=== PATIENT | male | born 1935 | race Caucasian/White ===

== ENCOUNTER 2017-04-11 16:25 | Inpatient (IN) | payer MEDICARE ==
[2017-04-11] VITALS (10 sets, daily range): BP systolic 94–128; BP diastolic 57–104; PULSE 50–104; RESP 24–34; O2SAT 68–100
[~2017-04-11] VITALS: Ht 175.3 cm; Wt 95.7 kg
[2017-04-11] MEDS: cefTRIAXone Inj 2,000 MG in Dextrose 5% Minibag Plus 50 ML IV SCH ×2 (08:00→20:00)
[~2017-04-11 16:25] MED LIST: ALBU2.5V4 INHALATION; ASPI-973 PO; ATOR10TA66 PO; CALC600T12 PO; FLUT1DIS5 IH; FURO-128 PO; LISI-571 PO; LORA10CA PO; METO25TA6 PO; MONT10TA20 PO; OMEP20CA11 PO; [UNRECOGNIZED DRUG - CODE] MC
--- NOTE | 2017-04-11 16:43 | ED.REPORT ---
HPI-Dyspnea / Wheezing Date of Service Apr 11, 2017 ED Provider: Nelson Hunt DO Pt is an 81 year old male with a history of COPD, HTN, pacemaker insertion, and CAD who presents to the ED complaining of SOB onset prior to arrival. He c/o associated productive cough with yellow sputum for the past 2 weeks, left neck pain, erythema and swelling on right side of face, and abdominal pain. Per family, the pt was asking to come to the hospital, which is unusual for him. The pt had been complaining about facial pain and erythema for the past week. He has had a facial infection before because he will not take his hearing aides out. HPI was primarily obtained from pt's daughter and [id number]. Nursing Notes Stated Complaint: TROUBLE BREATHING, PAIN IN FACE Chief Complaint: Respiratory Complaints Nursing Notes Reviewed: Yes Allergies: Coded Allergies: morphine (Verified Allergy, Severe, CONFUSED AND DISORIENTED, 07/22/16) Scheduled Aspirin (Aspirin) 81 Mg Tablet 162 MG PO DAILY Atorvastatin Calcium (Atorvastatin Calcium) 10 Mg Tablet 10 MG PO HS Calcium Carbonate (Calcium) 600 Mg Tablet 500 MG PO DAILY Fluticasone/Salmeterol (Advair 500-50 Diskus) 1 Each Disk.w.dev 1 PUFF IH BID Furosemide (Lasix) 40 Mg Tablet 40 MG PO BID Lisinopril (Lisinopril) 5 Mg Tablet 5 MG PO DAILY Loratadine (Claritin) 10 Mg Capsule 10 MG PO DAILY Metoprolol Tartrate (Metoprolol Tartrate) 25 Mg Tablet 25 MG PO BID Montelukast (Singulair) 10 Mg Tablet 10 MG PO HS Omeprazole (Omeprazole) 20 Mg Capsule.dr 20 MG PO BID Scheduled PRN Albuterol Neb Soln (Albuterol Neb Soln) 2.5 Mg/3 Ml Vial.neb 2.5 MG INHALATION Q4H PRN PRN For Wheezing Miscellaneous Medications Guaifenesin (Guaifenesin) 500 Gm Powder 500 GM MC General Time Seen by MD: 16:42 Chief Complaint Shortness of breath Hx Obtained From: Patient, Daughter Arrived By: Walk-in Sudden in Onset?: No Onset Occurred: Onset unknown Symptom Duration: Since onset Severity: Current: No pain currently Severity: Maximum: Moderate Recent Healthcare: No recent doctor visit Similar Sx Previous: No Past Medical History Past Medical History Has historically complained about facial pain and redness for the past week. History of face infection before because he won't take his hearing aides out. Chronic atrial fibrillation. COPD. Pneumonia in the past. History of severe epistaxis secondary to bleeding, with intervention from ENT, and is now off anticoagulation. BPH. Hypertension. GERD. Osteoporosis. 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 Severe ischemic cardiomyopathy, with ejection fraction 20-25%, [place] [employer] Class II heart failure symptoms. Coronary artery disease, nonobstructive. Past Surgical History PAST SURGICAL HISTORY: 1. Status post TURP. 2. Right knee arthroplasty. 3. Bilateral shoulder surgery. 4. Right elbow surgery with artificial joint. 5. Umbilical hernia repair in the past. 6. Single-chamber primary prevention ICD implantation. Smoking History Former Smoker Social History Alcohol Use: Denies alcohol use Drug Use: Denies drug use Other Social History: Good social support Ambulatory Status Independent Review of Systems + redness in face Respiratory: Reports: Prod cough, yellow, Shortness of breath Musculoskeletal: Reports: Neck pain Skin: Reports Swelling Complete sys rev & neg: except as marked. GI: Reports: Abdominal pain Physical Exam Initial Vital Signs Vital Signs (First) Date Time Temp Pulse Resp B/P Pulse Ox O2 Delivery O2 Flow Rate FiO2 04/11/17 16:30 36.7 50 34 128/82 68 Nasal Cannula 2 04/11/17 17:10 24 Initial VS: Reviewed ENT: Mucous membranes moist, Conjunctiva normal, No scleral icterus Abdomen / GI: Soft, Non-tender Skin: Warm, Dry, No cyanosis Neurologic: Alert, Oriented, Nonfocal Psychiatric: Mood/affect normal, Behavior normal General/Constitutional: Awake, Alert, Cooperative Neck: Atraumatic, Full range of motion Respiratory / Chest: Atraumatic, Breath sounds = bilat Course expiratory wheezes throughout. Diminished lung sounds on right lower lobe. Moderate respiratory distress on arrival. CARDIOVASCULAR: Heart is irregularly irregular Lower Extremity / Pelvis / MS: Atraumatic, Full range of motion, Neurologic intact, Vascular intact Trace lower extremity edema Head / Eyes: Atraumatic, Normocephalic Right side of pt's face is erythematous and warm. Upper Extremity / MS: Neurologic intact, Vascular intact Interpretation & Diagnostics Lab Results Interpretation Result Diagram: 04/13/17 0235 04/13/17 0235 Test 04/11/17 00:15 04/11/17 16:44 04/11/17 20:10 Urine Color Dark yellow (YELLOW) Urine Appearance Clear (CLEAR,HAZY) Urine pH 5.5 (5.0-8.0) Urine Specific Cameron 1.020 (1.003-1.035) Urine Protein 30mg/dL (NEG,TRACE) Urine Glucose (UA) Negativemg/dL (NEGATIVE) Urine Ketones Negativemg/dL (NEGATIVE) Urine Occult Blood Trace (NEGATIVE) Urine Nitrite Negative (NEGATIVE) Urine Bilirubin Negative (NEGATIVE) Urine Urobilinogen Normalmg/dL (NORMAL) Urine Leukocyte Esterase Negative (NEGATIVE) Urine RBC 3-10/hpf (0-2) Urine WBC 0-5/hpf (0-5) Urine Epithelial Cells Occasional/hpf (NONE-MOD) Urine Crystals Amorphous urates (NONE Urine Bacteria Few/hpf (NONE-FEW) Urine Hyaline Casts None/lpf (NONE) Urine Granular Casts None seen (NONE SEEN) Urine Waxy Casts None seen (NONE SEEN) Urine Red Blood Cell Casts None seen (NONE SEEN) Urine White Blood Cell Casts None seen (NONE SEEN) Urine Mucus None seen (None Seen) Urine Trichomonas None seen (NONE SEEN) Urine Yeast None (NONE SEEN) Urinalysis Comment None Urine Culture Reflexed Not indicated Urine Legionella pneumophilia Ag Negative (Negative) Prothrombin Time 10.8sec (8.1-12.5) Prothromb Time International Ratio 1.01ratio Hemoglobin A1c 5.6% (4.8-5.6) Magnesium Level 2.1mg/dL (1.6-2.6) Total Bilirubin 0.8mg/dL (0.0-1.2) Aspartate Amino Transf (AST/SGOT) 23U/L (0-50) Alanine Aminotransferase (ALT/SGPT) 12U/L (0-44) Alkaline Phosphatase 88U/L (25-160) Pro-B-Type Natriuretic Peptide 8354pg/mL (0-486) Total Protein 7.7g/dL (6.4-8.4) Albumin 4.2g/dL (3.4-5.0) Lactic Acid Level 1.4mmol/L (0.4-2.0) ECG Interpretation ECG Interpretation: A-fib with a rate of 102. Right axis deviation. Nonspecific T wave abnormalites. When compared with previous, he is more tachycardic. Time: 16:48 Interpreted by: ED physician X-Ray Chest Interpretation Chest Xray Interpretation: IMPRESSION: Changes consistent with pneumonia versus less likely I think atelectasis in this patient with poor depth of inspiration. Dictated by: Elie Leavitt M.D. on 04/11/2017 at 16:59 View: Portable, 1 view Interpretation / Wet Read by: Interpret - Radiologist Re-Eval/Medical Decision Med Decision/Clinical Course 81-year-old male with a history of atrial fibrillation with pacemaker, ischemic cardiomyopathy, heart failure with an ejection fraction of 30-35% on recent EKG performed 07/23/16 also showing severe global hypokinesis of the left ventricle, CKD 3 and COPD presents with increasing shortness of breath, sputum production, and weakness. He has hypoxic/hypercapnic respiratory failure and BiPAP was initiated on arrival. His ABG 7.38/52/180/30 on FiO2 of 100/nonrebreather. His troponin is elevated at 0.52 and is similar to previous hospitalizations. His BNP is elevated at 8000. There are no significant signs of volume overload on his exam or his x-ray. X-ray shows patchy density of the lower lung morgan consistent with a pneumonia. Full set of infectious workup was ordered including blood cultures. He was started on azithromycin and Rocephin for community-acquired pneumonia as he has not recently been in the hospital. It is also noted that he has been complaining of facial pain and redness for the past week or 2 he has a history of facial cellulitis related to him not taking his hearing aids. On exam there is a significant malodor after the hearing aid on the right was removed. There is no fluctuance in the face. His ceftriaxone ordered for pneumonia will cover this. He was hypotensive to the 90s systolic and 1 L fluids was given and his blood pressure improved. He continues to be very sleepy on BiPAP. ABG rechecked Source of Hx: Old records Re-Evaluation/Progress #1: Time of Eval: 17:45 )( Re-Eval Resp / Chest: No respiratory distress Re-Evaluation/Progress Note: Pt rechecked. Informed pt of plan for admission. Pt understands and agrees with plan for admission. All questions addressed. Re-Evaluation/Progress #2: Time of Eval: 19:27 )( Re-Eval Resp / Chest: No respiratory distress Re-Evaluation/Progress Note: Pt rechecked. Family reported history of facial pain and infection due to pt not taking his hearing aides out. Pt's hearing aide was removed and his ears were checked for signs of infection. All questions were answered. 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 Counseled Regarding: Diagnosis, Lab results, Need for admission Discharge & Departure Impression: Primary Impression: Sepsis Sepsis type: sepsis due to unspecified organism Qualified Code: A41.9 - Sepsis, unspecified organism Additional Impressions: Pneumonia Pneumonia type: due to unspecified organism Laterality: unspecified laterality Lung location: unspecified part of lung Qualified Code: J18.9 - Pneumonia, unspecified organism Facial cellulitis Respiratory failure Chronicity: acute on chronic Respiratory failure complication: hypoxia and hypercapnia Qualified Code: J96.21 - Acute and chronic respiratory failure with hypoxia CKD (chronic kidney disease) Chronic kidney disease stage: stage 3 (moderate) Qualified Code: N18.3 - Chronic kidney disease, stage 3 (moderate) Lactic acidosis Disposition: ADMITTED TO HOSPITAL Discharge Condition All VS Reviewed: Yes Condition: Stable Referrals: Lenore Pruitt MD (PCP) Annmarieibazucena Attestation Portions of this note were transcribed by Angelica Bess. I, Dr. Hunt personally performed the history, physical exam and medical decision-making; I reviewed and confirmed the accuracy of the information in the transcribed note. Signed by: Hope Gutiérrez, 04/11/17 and 19:40. copies to: Lenore Pruitt MD, Gary R DO Apr 11, 2017 16:43 Angelica Conteh Apr 11, 2017 18:50
[2017-04-11] MEDS ORDERED: cefTRIAXone Inj 1,000 MG in Dextrose 5% Minibag Plus 50 ML IV ONE (16:55)
[2017-04-11] MEDS ORDERED: Azithromycin Inj 500 MG in Dextrose 5% w/Vial Mate 250 ML IV ONE (16:55)
[2017-04-11] MEDS ORDERED: Albuterol 2.5 mg/3 mL Inhalation Solution NEB ONE (16:55)
[2017-04-11] MEDS ORDERED: Albuterol-Ipratropium 3 mL Inhalation Solution NEB ONE (16:55)
--- NOTE | 2017-04-11 16:57 | ABG ---
DateTimeAnalyzed 16:52:00 -_ pH ____7.379 - 7.350 7.450 pCO2 ___52.1__ -mmHg 35.0 45.0 pO2 180 -mmHg 69.0 116 HCO3- ___30.0__ -mmol/L 22.0 26.0 ABE ____4.1__ -mmol/L -2.0 2.0 tHb ___14.7__ -g/dL O2Hb ___96.8__ -% COHb ____2.0__ -% MetHb ____0.8__ -% sO2 ___99.6__ -% 25.0 FIO2 __100.0__ -% Drawn By jj - Date/Time Notified____ 16:57:00 -_ Oxygen Device 1 NON RE-SHANTELL - Notified By jj - Notified Whom dr andelin - B 761 -mmHg tO2 ___20.3__ -Vol% Russell test _Positive -
--- NOTE | 2017-04-11 17:05 | DRSVH ---
PROCEDURE: X-RAY CHEST ONE VIEW, PORTABLE ([id number]) INDICATIONS: shortness of breath TECHNIQUE: One view of the chest was acquired. COMPARISON: [facility], CR, XR CHEST 2VW, 02/04/2017, 11:30. FINDINGS: Surgical changes and devices: Single lead pacemaker is present in the left chest. parking enforcer marcleino ds and oxygen tubing is seen over the chest. Lungs and pleura: There is a poor depth of inspiration. There are patchy areas of density in the lowe r lung morgan. The appearance would suggest pneumonia rather than failure. Mediastinum: Mediastinal contours appear normal. Heart size is probably mildly enlarged. Bones and chest wall: No suspicious bony lesions. Overlying soft tissues appear unremarkable. IMPRESSION: Changes consistent with pneumonia versus less likely I think atelectasis in this patient with poor depth of inspiration. Dictated by: Elie Leavitt M.D. on 04/11/2017 at 16:59 Approved by: Elie Leavitt M.D. on 04/11/2017 at 17:03
[2017-04-11 17:09] LABS: BASOPHILS % (AUTO) 0.2 % (0-3); EOSINOPHILS % (AUTO) 0.2 % (0-5); MONOCYTES % (AUTO) 7.5 % (4-12); Mean Corpuscular Volume 107.4 fL (81-100); NEUTROPHILS % (AUTO) 87.2 % (40-74); Platelet Count 180 bil/L (150-400)
[2017-04-11 17:30] LABS: INR 1.01 ratio
[2017-04-11 18:03] LABS: TROPONIN T 0.052 ug/L (0.0-0.011)
[2017-04-11 18:15] LABS: Magnesium 2.1 mg/dL (1.6-2.6)
[2017-04-11] MEDS ORDERED: 0.9% Sodium Chloride 1,000 ML IV ONE ×2 (19:12→20:21)
--- NOTE | 2017-04-11 19:53 | ABG ---
DateTimeAnalyzed 19:49:00 -_ pH ____7.404 - 7.350 7.450 pCO2 ___48.0__ -mmHg 35.0 45.0 pO2 ___53.4__ -mmHg 69.0 116 HCO3- ___29.4__ -mmol/L 22.0 26.0 ABE ____4.3__ -mmol/L -2.0 2.0 tHb ___13.5__ -g/dL O2Hb ___86.0__ -% COHb ____2.1__ -% MetHb ____0.8__ -% sO2 ___88.6__ -% 25.0 FIO2 ___28.0__ -% Drawn By AF - Date/Time Notified____ 19:53:00 -_ Oxygen Device 1 ____BIPAP - Notified By AF - Notified Whom ___Dr. Andelin - B 761 -mmHg tO2 ___16.3__ -Vol% Russell test _Positive -
[2017-04-11] MEDS ORDERED: Alum-Mag Hydrox-Simeth 30 mL Suspension PO PRN (20:35)
[2017-04-11] MEDS ORDERED: Polyethylene Glycol (PEG) 17 Gm Powder PO PRN (20:35)
[2017-04-11] MEDS ORDERED: cefTRIAXone Inj 2,000 MG in Dextrose 5% Minibag Plus 50 ML IV SCH (21:50)
[2017-04-11] MEDS: 0.9% Sodium Chloride 1,000 ML IV SCH (22:29)
--- NOTE | 2017-04-11 22:32 | NUR ---
Admit note: Pt arrived to room 2013 at 2120 per cart from ED. Pt was moved onto bed with use of slide board and assist x3. Monitor applied shows A-fib rate 90-110s. RT at bedside places pt on Bipap with setting of 50% Fio2, 12/6, and spo2 is 99%. Pt is very hard of hearing wears bilateral hearing aids. right hearing aid was removed in ED due to red swollen right ear, face and neck. Pt tolerating Bipap well made comfortable in bed. Dr Andres was notified and orders placed for pt. pt has several skin issues. Bilateral arms are dry and flaky with multiple small bruises scattered. Bilateral feet and toes are dry and scaly with callused skin, bilateral legs are dry with flaky skin and multiple small bruises and scabbed areas scattered, right side of face, ear, and neck are red with some swelling.
--- NOTE | 2017-04-11 22:40 | PCM.HPMED ---
Subjective Date of Service Apr 11, 2017 Primary Provider: Admitting Physician: Primary Care Physician: Lenore Pruitt MD Attending Physician: Chief Complaint: Not feeling well, difficulty breathing and pain on right side of face and ear. History of Present Illness: Pt is an 81 year old male with a history of COPD, HTN, pacemaker insertion, and CAD, systolic heart failure with an EF of 30-35% as of 07/23/2016. Who presents to the ED complaining of SOB onset prior to arrival. He c/o associated productive cough with yellow sputum for the past 2 weeks, left neck pain, erythema and swelling on right side of face, and abdominal pain. Per family, the pt was asking to come to the hospital, which is unusual for him. The pt had been complaining about facial pain and erythema for the past week. He has had a facial infection before because he will not take his hearing aides out. He was also seen last year in [facility] for nearly identical presentation aside from facial pain but reports he was cutting his grass on his riding on his lawnmower , and stopped early, came inside and told his family has not been feeling well. He is on 2-3 L O2 at night by nasal cannula. In the past he was prescribed trilogy device which apparently was discontinued 2 months ago for unknown reasons at this point. He was also on a CPAP machine years ago but decided he did when he uses it anymore. Vitals in the emergency department upon admission were as follows; temperature 36.7, pulse 50, respiratory rate 34, blood pressure 128/82, pulse ox 68% on 2 L nasal cannula, when pulse ox was adjusted or changed to his ear he was reported to be 94-100% sats on BiPAP and 24 FiO2. His labs upon admission were white count 11.7, hemoglobin 15.6, platelets 180, neutrophils 87.2, sodium 143, potassium 4.8, chloride 99, carbon dioxide 28, BUNs 37, creatinine 1.76. Glucose 101, lactic acid was initially elevated 2.4, troponins on initial values were 0.052 Blood cultures 2 pending, urinary cultures ordered, strep pneumo antigen, Legionella urine antigen ordered, viral PCR ordered, MRSA nasal ordered, sputum culture ordered. Chest x-ray as reviewed by the radiologist shows changes consistent with pneumonia versus less likely atelectasis. EKG shows an A. fib, minor right axis deviation, no ST elevations or depressions. Rate 102. ABG on arrival with pH 7.37, CO2 52, O2 180 and calculated CO2 30, Repeat ABG with pH 7.4, CO2 48, O2 53, titrated CO2 29 In the emergency department patient received ceftriaxone and azithromycin. Review of Systems: HEENT: redness, erythema and superficial cutaneous crusting in face on the right side and along the right ear. He also reports some episodes of vomiting but is unclear as to when and how many. Respiratory: Reports: Prod cough, yellow, Shortness of breath Musculoskeletal: Reports: Neck pain, and right-sided facial pain Skin: Reports Swelling GI: Reports: Abdominal pain, and decreased urination. Allergies Coded Allergies: morphine (Verified Allergy, Severe, CONFUSED AND DISORIENTED, 07/22/16) Home Medications Aspirin (Aspirin) 81 Mg Tablet 162 MG PO DAILY Atorvastatin Calcium (Atorvastatin Calcium) 10 Mg Tablet 10 MG PO HS Calcium Carbonate (Calcium) 600 Mg Tablet 500 MG PO DAILY Fluticasone/Salmeterol (Advair 500-50 Diskus) 1 Each Disk.w.dev 1 PUFF IH BID Furosemide (Lasix) 40 Mg Tablet 40 MG PO BID Lisinopril (Lisinopril) 5 Mg Tablet 5 MG PO DAILY Loratadine (Claritin) 10 Mg Capsule 10 MG PO DAILY Metoprolol Tartrate (Metoprolol Tartrate) 25 Mg Tablet 25 MG PO BID Montelukast (Singulair) 10 Mg Tablet 10 MG PO HS Omeprazole (Omeprazole) 20 Mg Capsule.dr 20 MG PO BID PMH Has historically complained about facial pain and redness for the past week. History of face infection before because he won't take his hearing aides out. Chronic atrial fibrillation. COPD. Pneumonia in the past. History of severe epistaxis secondary to bleeding, with intervention from ENT, and is now off anticoagulation. BPH. Hypertension. GERD. Osteoporosis. 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 Severe ischemic cardiomyopathy, with ejection fraction 20-25%, [place] [employer] Class II heart failure symptoms. Coronary artery disease, nonobstructive. Surgical History 1. Status post TURP. 2. Right knee arthroplasty. 3. Bilateral shoulder surgery. 4. Right elbow surgery with artificial joint. 5. Umbilical hernia repair in the past. 6. Single-chamber primary prevention ICD implantation. Family History Family cannot recall and patient cannot report family history. Social History Hx Alcohol Use: No Hx Substance Use: No Hx Tobacco Use: Yes (quit in ) Smoking Status: Former Smoker Living Arrangement: with Family Exam Vital Signs Vital Sign - Last Date Time Temp Pulse Resp B/P Pulse Ox O2 Delivery O2 Flow Rate FiO2 04/11/17 20:20 88 26 97/75 98 BiPAP 04/11/17 17:10 24 04/11/17 16:30 36.7 2 Exam General: Elderly patient lying in bed with BiPAP in place. Extremely hard of hearing especially since his right hearing aid has been removed due to cellulitis. Well-developed. Appears to be in no acute distress, HEENT: Normocephalic, atraumatic. External ear on the left without defect on the right erythematous. Pupils equal, round,responsive, not pinpoint or dilated. lower eye lid with erythema and mucopurulent discharge. Oropharynx free of erythema with moist mucosa from what I could see however BiPAP was in place. . Cardiovascular: Irregularly irregular rate and rhythm. No murmurs appreciable, rubs, or gallops appreciated Pulmonary: Bilateral diffuse wheezes and rhonchi present. BiPAP in place. Abdomen: Bowel tones present. Soft, mildly tender to palpation diffusely with no signs of rebound tenderness. nondistended. No hepatosplenomegaly or masses appreciated. Extremities: No clubbing, cyanosis, no lower extremity edema, or lymphadenopathy appreciated. Skin: Normal temperature, turgor, and texture; no rash, ulcers, or subcutaneous nodules appreciated. Neurological: Cranial nerves grossly intact. Normal muscle strength, tone, and bulk. Reflexes, coordination, and sensory function within normal limits. No known gait impairment. Ambulates with a walker when outside the home. Psychiatric: Normal mood and affect. Alert and oriented to person, place, and time, however was very difficult to assess due to patient's inability to hear, or see for that matter. Lab and Diagnostics Result Diagram: 04/11/17164304/11/171643 Assessment & Plan Mr. Markie Pop is an 81-year-old male, with a past medical history of known COPD, CHF, chronic atrial fibrillation with ICD pacer and Defibrillator, hypertension, who presented to the ER complaining of shortness of breath and face pain. 1. Acute Respiratory Failure with Acute exacerbation of chronic obstructive pulmonary disease. Present on admission - Acute exacerbation due to pneumonia. Pulmonary function test from 02/25/17 shows FEV1 43% predicted, GOLD criteria stage 2. Patient is currently requiring BIPAP - Continue oxygen supplementation as needed to keep sats 88-92% - Continue home Singulair 10 mg daily - Continue home Advair (or Symbicort if not available) - Prednisone 40 mg daily x 5 days (according to REDUCE trial), however patient is currently on BIPAP and NPO therefore will give IV solu-medrol at equivalent dosage and switch to PO prednisone when possible. - Consider Pulmonary consult if no improvement 2. Acute sepsis, present on admission. Active. - On admission patient pulse was 92 and respiratory rate 24 placed on a BiPAP however once transferred to the floor patient's pulses at 204, respiratory rate 26, WBC 11.7 with Neuts 87.2 %. - Differential diagnosis includes community-acquired pneumonia, cellulites, urinary tract infection... 3. Community acquired pneumonia. Present on admission, Active. - Unclear if patient aspirated with reports of some vomiting recently. He may be immunocompromised due to his age but does not meet criteria for healthcare associated infection. - Continue Ceftriaxone IV and Azithromycin for empiric antibiotics - Blood cultures, sputum cultures, Legionella/strep pneumo urine antigen, MRSA nasal swab, respiratory viral panel all ordered pending. - Procalcitonin - 0.19, Will repeat in the morning. 4. Acute facial cellulitis, present on admission. Active. - Patient has previous admit for cellulitis of right side of the face and right ear back 02/02/2013. - Is reported the patient does not remove his right sided hearing aid at night and ED reports once removed there was a very foul smell. - Differential diagnosis; erysipelas/cellulitis/otitis externa - Start linezolid which has very good MSSA and MRSA coverage. - ciprofloxacin ear drops. Erythromycin ophthalmic ointment 5. Chronic Heart failure with reduced ejection fraction, present on admission. Active. - Echo as of 07/23/2016 shows EF of 30-35%. - Balance IV fluids 6. Elevated troponin. Present on admission, improving. - Likely due to demand ischemia from pneumonia but patient has risk factors for Acute Coronary syndrome. His chest pain could be angina - Trending troponin, initially elevated at 0.052 with every 4 H with next value 0.044. 7. Hypotension, present on admission. Stable. - We will balance fluid administration in this patient with systolic heart failure and renal injury. - Current IV fluids at 100 per hour, for 1 L will recheck. - Continue Lisinopril 5 mg daily when appropriate. 8. Chronic atrial fibrillation. Currently rate controlled. [id number] score 3 (3.2%/yr stroke risk) but patient had complications of epistasis and anticoagulations was discontinued - Continuing Carvedilol 12.5 mg bid for rate control - Continue home Aspirin 9. Acute on Chronic Kidney disease Stage 3 - Slightly worsening than baseline which could be from pre renal azotemia in the setting of hypovolemia - Avoid nephrotoxic insults. - Patient's creatinine on admission was 1.76 which is right around previous values and seems to run anywhere from 1.26-2.16 on admissions since 2007. - Continue IV fluids however we will balance this with patient systolic heart failure. 10. Coronary artery disease with severe nonischemic cardiomyopathy - Status post implantable cardioverter defibrillator implantation. - Holding diuretics at least tonight to give fluids - Continuing home Simvastatin - Continue 81 Aspirin daily - Acetaminophen as needed for mild pain/fever/headache - Bowel regimen as needed - Antiemetic as needed Patient admitted under inpatient status with expected length of stay > 2 midnights for severity of present symptoms, complexities of treatment plan and risk for adverse event Pain Evaluation: Adequate Pain Control Resuscitation Status: CPR: Attempt Resuscitation LEÓN CONNOR DO Apr 11, 2017 20:43 Sergio Gabriel MD Apr 12, 2017 06:50
[2017-04-11] MEDS ORDERED: MethylprednisoLONE Sodium Succinate 62.5 mg/mL 2 mL Inj IVPUSH ONE (23:25)
[2017-04-12] VITALS (19 sets, daily range): BP systolic 28–114; BP diastolic 59–86; PULSE 75–112; RESP 20–32; O2SAT 92–99
[2017-04-12] MEDS ORDERED: Albuterol 2.5 mg/3 mL Inhalation Solution NEB PRN (00:15)
[2017-04-12] MEDS: Albuterol-Ipratropium 3 mL Inhalation Solution NEB SCH ×7 (00:24→23:32)
[2017-04-12 00:32] LABS: APPEARANCE,URINE CLEAR (CLEAR,HAZY); COLOR,URINE DARK YELLOW (YELLOW); OCCULT BLOOD,URINE TRACE (NEGATIVE); PH,URINE 5.5 (5.0-8.0); UROBILINOGEN,URINE NORMAL (NORMAL)
[2017-04-12] MEDS: Linezolid Inj 600 MG in IV Premix 1 EACH IV SCH ×3 (00:42→21:38)
[2017-04-12] MEDS: cefTRIAXone Inj 2,000 MG in Dextrose 5% Minibag Plus 50 ML IV SCH ×2 (08:00→20:03)
--- NOTE | 2017-04-12 08:02 | DRSVH ---
PROCEDURE: X-RAY CHEST ONE VIEW, PORTABLE ([id number]) INDICATIONS: Pneumonia TECHNIQUE: One view of the chest was acquired. COMPARISON: [facility], CR, XR CHEST 1VW (PORTABLE), 04/11/2017, 16:41. FINDINGS: Surgical changes and devices: Cardiac AICD Lungs and pleura: No pleural effusions or pneumothorax. Retrocardiac patchy consolidation is unchang ed. There is mild right mid and lower lobe opacities which may be mildly improved to stable since ear lier same day. Mediastinum: Mediastinal contours appear normal. Heart size is normal. Bones and chest wall: No suspicious bony lesions. Overlying soft tissues appear unremarkable. IMPRESSION: Bilateral patchy consolidative and groundglass opacities, most pronounced in the retrocardiac region, suggestive of pneumonia (versus aspiration/atelectasis) as above. Please correlate clinically. Dictated by: Malcom Cox M.D. on 04/12/2017 at 7:58 Approved by: Malcom Cox M.D. on 04/12/2017 at 8:00
[2017-04-12] MEDS: Erythromycin 0.5% 3.5 Gm Ophthalmic Ointment BOTH_EYES SCH ×3 (08:30→20:37)
[2017-04-12] MEDS ORDERED: Azithromycin Inj 500 MG in Dextrose 5% w/Vial Mate 250 ML IV SCH (08:30)
[2017-04-12] MEDS: predniSONE 20 mg Tablet PO SCH (10:27)
[2017-04-12] MEDS: Fluticasone-Salmeterol 500-50 Inhaler INHALATION SCH ×2 (10:29→20:37)
[2017-04-12] MEDS: Ciprofloxacin-Dexamethasone 7.5 mL Otic Susp RIGHT_EAR SCH ×2 (10:29→20:38)
[2017-04-12] MEDS: 0.9% Sodium Chloride 1,000 ML IV SCH ×2 (10:30→18:42)
--- NOTE | 2017-04-12 13:50 | PCM.PNMED ---
Subjective Date of Service Apr 12, 2017 Subjective 81-year-old man with COPD on 2 L home O2, ischemic cardiomyopathy LVEF 30-35% presents with 2 weeks of increased productive cough and dyspnea, as well as facial cellulitis. The patient seems to deny symptoms. The knowledge his breathing may be slightly worse than usual. Family describes significant dyspnea and increased phlegm in recent days, as well as worsened redness of the right side of face. They observe some improvement already since admission 24 hours ago. Patient tolerates BiPAP as needed. Exam Vital Signs Vital Sign - Last Date Time Temp Pulse Resp B/P Pulse Ox O2 Delivery O2 Flow Rate FiO2 04/12/17 12:30 84 113/81 95 40 04/12/17 12:28 36.6 20 Room Air 04/11/17 16:30 2 Intake and Output 04/11/17 04/11/17 04/12/17 Cumulative From/Thru 15:00 23:00 07:00 04/11/17 16:30 - 04/12/17 06:45 Intake Total 2000 ml 0 ml 2000 ml Output Total 350 ml 350 ml Balance 2000 ml -350 ml 1650 ml Intake Oral 0 ml 0 ml IV Total 2000 ml 2000 ml Output Urine Total 350 ml 350 ml Exam General: Obese elderly gentleman, hard of hearing, no acute distress HEENT: Right-sided face is reddened and swollen without warmth. Sclerae anicteric, oral mucosa moist; sclera injected bilaterally Neck: No palpable adenopathy on the right, no tender deep structures, no JVD Chest: Moderate diffuse wheezing, rhonchi, no wet rales Cardiac: S1S2, slightly irregular, no murmur Abdomen: BS normal, non-tender Extremities: No pedal edema Neuro: A&O, cranial nerves symmetric decreased , motor strength and coordination generally normal IVs and Medications Medications Reviewed: Medications were reviewed in detail Lab and Diagnostics Troponin T sequence: 0.052, 0.044, 0.053 ProBNP 8354 Procalcitonin 0.19 Result Diagram: 04/11/17 1644 04/11/17 1644 X-Rays, CTs and MRIs PROCEDURE: X-RAY CHEST ONE VIEW, PORTABLE ([id number]) FINDINGS: Lungs and pleura: There is a poor depth of inspiration. There are patchy areas of density in the lower lung morgan. The appearance would suggest pneumonia rather than failure. IMPRESSION: Changes consistent with pneumonia versus less likely I think atelectasis in this patient with poor depth of inspiration. Dictated by: Elie Leavitt M.D. on 04/11/2017 at 16:59 PROCEDURE: X-RAY CHEST ONE VIEW, PORTABLE ([id number]) FINDINGS: Lungs and pleura: No pleural effusions or pneumothorax. Retrocardiac patchy consolidation is unchanged. There is mild right mid and lower lobe opacities which may be mildly improved to stable since earlier same day. Mediastinum: Mediastinal contours appear normal. Heart size is normal. IMPRESSION: Bilateral patchy consolidative and groundglass opacities, most pronounced in the retrocardiac region, suggestive of pneumonia (versus aspiration/atelectasis ) as above. Please correlate clinically. Dictated by: Malcom Cox M.D. on 04/12/2017 at 7:58 . 12-lead ECG 04/11/17 16:48 A. fib, rate 100, normal conduction intervals, no acute ST changes . Assessment & Plan Acute, Active or High-risk Problems: #. SIRS, present on admission. Active. Respiratory rate 24, pulse 92. Afebrile, normotensive with borderline WBC elevation. Not clinically septic. Mild SIRS due to respiratory distress, pneumonia and cellulitis. -Continue to monitor vital signs, blood pressure, urinary output #. Acute Respiratory Failure with Acute exacerbation of chronic obstructive pulmonary disease. Present on admission. Pulmonary function test from 02/25/17 shows FEV1 43% predicted, GOLD criteria stage 2. Acute on chronic COPD exacerbation due to pneumonia. RONALD based on body habitus - Continue BIPAP as needed while resting - Continue oxygen supplementation as needed to keep sats 88-92% - Continue home Singulair 10 mg daily - Continue home Advair (or Symbicort if not available) - Prednisone 40 mg daily x 5 days (according to REDUCE trial) #. Community acquired pneumonia. Present on admission, Active. Does not seem to have significant Pseudomonas or MRSA risk factors. Respiratory viral PCR negative, urinary antigens negative, blood cultures no growth so far. - Continue Ceftriaxone IV and Azithromycin for empiric antibiotics #. 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 Active. Patient has previous admit for cellulitis of right side of the face and right ear 2012. Reportedly related to failure to remove right hearing aid periodically. Differential diagnosis; erysipelas, other cellulitis, otitis externa. Does not seem to be deep soft tissue infection. -Continue linezolid which has very good MSSA and MRSA coverage. - MRSA swab - ciprofloxacin ear drops. #. Hypotension, present on admission. Blood pressure 94/68 shortly after admission. Now 113/80 Stable. Received initial fluid resuscitation. - Discontinue IV fluids. - Resume Lisinopril 5 mg daily when appropriate. #. Acute on Chronic Kidney disease Stage 3. Serum creatinine on admission 1.76. Recent baseline serum creatinine 1.65. - Avoid nephrotoxic insults. Chronic or Stable but Actively Managed Problems: #. Chronic systolic Heart failure, present on admission. Active. No evidence of acute exacerbation at this time. Echo as of 07/23/2016 shows LVEF of 30-35%. - Discontinue IV fluids - The patient is on beta morgan and BUSTER inhibitor; resume these as tolerated #. Chronic atrial fibrillation. [id number] score 3 (3.2%/yr stroke risk) but patient had complications of epistasis and anticoagulations was discontinued - Continuing Carvedilol 12.5 mg bid for rate control - Continue home Aspirin - Telemetry monitoring at present #. Elevated troponin. Present on admission, improving. Temporal pattern does not suggest acute ischemia. A clearly related to CKD. - Monitor cardiac status clinically #. Coronary artery disease. History of implantable cardioverter defibrillator implantation. - Continuing home Simvastatin - Continue 81 Aspirin daily #. Conjunctivitis bilateral. - Erythromycin ophthalmic ointment - Acetaminophen as needed for mild pain/fever/headache - Bowel regimen as needed - Antiemetic as needed Patient admitted under inpatient status with expected length of stay > 2 midnights for severity of present symptoms, complexities of treatment plan and risk for adverse event Resuscitation Status: CPR: Attempt Resuscitation Time spent 35 minutes Hossein Novak MD Apr 12, 2017 13:50
--- NOTE | 2017-04-12 16:01 | NUR ---
Social Work: Screen/Attempted Assessment D: Per EMR review, pt is an 81 year old male admitted for sepsis, Respiratory failure. Pt is [facility] with Medicare. PCP is Lenore Pruitt MD. NOK is Quang Pop, son. Advanced directives not completed per admit RN- [employer] left copy at bedside for pt. Readmit score is low, 2/8. [employer] attempted to meet with patient at bedside to discuss discharge planning. RN and MD team are currently with pt. Pt discussed in am rounds. Pt is not appropriate for discharge at this time and anticipated to require several more days of hospitalization. A: Pt who lives in [place] with his family. P: Evolving; [employer] to follow up with patient to complete assessment and assess for discharge needs. JULISA Motley
[2017-04-12] MEDS: Azithromycin Inj 500 MG in Dextrose 5% w/Vial Mate 250 ML IV SCH (18:42)
--- NOTE | 2017-04-12 19:43 | NUR ---
Resp/CV/Activity/GI Tolerating Bipap 40% I=14/E=8, with resps 20-26. Exertional dyspnea. Pt able to tolerate periods of being off bipap while awake, up in chair or sitting up in bed; Oxymask @ 5L or NC @ 5L keeps sats>92%. Strong persistent cough productive of whitish sputum. Atrial fib 70s when resting; up to 90s with activity. Pt has permanent pacemaker. Diet taken fair Lunch and dinner; pt reports he has poor appetite. Up to BR; stool x1, formed. Spec sent for guiac. Teaching re safety, using call light reviewed with pt; verbalizes understanding. Continue to monitor closely.
--- NOTE | 2017-04-12 23:15 | NUR ---
resp status pt alert and oriented but very sitka, jordan, right ear reddened/swollen/whitish flakes, right side of face reddened, right eyes reddened, denies cp, tele- afib, hr approx 100, denies n/v, abd round /soft, nt, denies pain good uop per f/c, no bm, scd'son, sob with minimal exertion, ls- exp wheezes, hob up, resp rate in 20's, pt on five liters o2 per nc while awake with sats 92-93%, pt on .40 fio2 per bipap while asleep with sats in low 90's, coughing up thin creamy sputum, RT aware pt has orders for acapella and IS, report given to next rn at 2315,
[2017-04-13] VITALS (16 sets, daily range): BP systolic 96–148; BP diastolic 59–87; PULSE 65–117; RESP 16–31; O2SAT 91–98
--- NOTE | 2017-04-13 00:24 | NUR ---
NOC activity 2315: Assumed care of patient. Tolerating bipap, spo2 97%. Denies pain/discomfort. Dai patent, draining clear ny urine to gravity. VSS, TELE: Afib 78. Call light w/in reach. CTM for changes.
[2017-04-13 03:05] LABS: BASOPHILS % (AUTO) 0 % (0-3); EOSINOPHILS % (AUTO) 0 % (0-5); MONOCYTES % (AUTO) 10.1 % (4-12); Mean Corpuscular Volume 106.8 fL (81-100); Platelet Count 154 bil/L (150-400)
[2017-04-13] MEDS: 0.9% Sodium Chloride 1,000 ML IV SCH ×2 (04:04→13:37)
[2017-04-13 04:05] LABS: Phosphorus 3.2 mg/dL (2.5-4.9)
[2017-04-13] MEDS: Albuterol-Ipratropium 3 mL Inhalation Solution NEB SCH ×5 (04:13→20:35)
[2017-04-13] MEDS: Linezolid Inj 600 MG in IV Premix 1 EACH IV SCH ×2 (08:59→22:29)
[2017-04-13] MEDS: predniSONE 20 mg Tablet PO SCH (09:01)
[2017-04-13] MEDS: Erythromycin 0.5% 3.5 Gm Ophthalmic Ointment BOTH_EYES SCH ×3 (09:01→19:57)
[2017-04-13] MEDS: Fluticasone-Salmeterol 500-50 Inhaler INHALATION SCH ×2 (09:01→19:56)
[2017-04-13] MEDS: Ciprofloxacin-Dexamethasone 7.5 mL Otic Susp RIGHT_EAR SCH ×2 (09:02→19:55)
[2017-04-13] MEDS: cefTRIAXone Inj 2,000 MG in Dextrose 5% Minibag Plus 50 ML IV SCH ×2 (10:30→19:49)
--- NOTE | 2017-04-13 14:13 | PCM.PNMED ---
Subjective Date of Service Apr 13, 2017 Subjective 81-year-old man with COPD on 2 L home O2, ischemic cardiomyopathy LVEF 30-35% presents with 2 weeks of increased productive cough and dyspnea, as well as facial cellulitis. The patient seems to deny symptoms, but states he is breathing more comfortably today. His cough is nonproductive. Patient tolerates BiPAP as needed. Pain is localized to right cheek only, no neck pain. Exam Vital Signs Vital Sign - Last Date Time Temp Pulse Resp B/P Pulse Ox O2 Delivery O2 Flow Rate FiO2 04/13/17 12:28 85 20 98 Nasal Cannula 6.00 04/13/17 12:05 36.5 122/59 04/13/17 08:49 40 Intake and Output 04/12/17 04/12/17 04/13/17 Cumulative From/Thru 15:00 23:00 07:00 04/11/17 16:30 - 04/13/17 06:07 Intake Total 3501 ml 1397 ml 6898 ml Output Total 500 ml 1650 ml 2500 ml Balance 3001 ml -253 ml 4398 ml Intake Oral 1180 ml 200 ml 1380 ml IV Total 2321 ml 1197 ml 5518 ml Output Urine Total 500 ml 1650 ml 2500 ml # Voids 9 9 # Bowel Movements 2 2 Exam General: Obese elderly gentleman, hard of hearing, no acute distress HEENT: Right-sided face is reddened and swollen without warmth. Sclerae anicteric, oral mucosa moist; sclera injected bilaterally Neck: No tender deep structures, no JVD Chest: Mild diffuse wheezing and moderate rhonchi Cardiac: S1S2, slightly irregular, no murmur appreciated Abdomen: BS normal, non-tender Extremities: No pedal edema Neuro: A&O, hard of hearing, cranial nerves symmetric, motor strength and coordination generally normal Lab and Diagnostics Result Diagram: 04/13/175 04/13/17 023 X-Rays, CTs and MRIs PROCEDURE: X-RAY CHEST ONE VIEW, PORTABLE ([id number]) FINDINGS: Lungs and pleura: There is a poor depth of inspiration. There are patchy areas of density in the lower lung morgan. The appearance would suggest pneumonia rather than failure. IMPRESSION: Changes consistent with pneumonia versus less likely I think atelectasis in this patient with poor depth of inspiration. Dictated by: Elie Leavitt M.D. on 04/11/2017 at 16:59 PROCEDURE: X-RAY CHEST ONE VIEW, PORTABLE ([id number]) FINDINGS: Lungs and pleura: No pleural effusions or pneumothorax. Retrocardiac patchy consolidation is unchanged. There is mild right mid and lower lobe opacities which may be mildly improved to stable since earlier same day. Mediastinum: Mediastinal contours appear normal. Heart size is normal. IMPRESSION: Bilateral patchy consolidative and groundglass opacities, most pronounced in the retrocardiac region, suggestive of pneumonia (versus aspiration/atelectasis ) as above. Please correlate clinically. Dictated by: Malcom Cox M.D. on 04/12/2017 at 7:58 . 12-lead ECG 04/11/17 16:48 A. fib, rate 100, normal conduction intervals, no acute ST changes . Assessment & Plan Acute, Active or High-risk Problems: #. SIRS, present on admission. Active. Respiratory rate 24, pulse 92. Afebrile, normotensive with borderline WBC elevation. Not clinically septic. Mild SIRS due to respiratory distress, pneumonia and cellulitis. Continues to show tachypnea and tachycardia. -Continue to monitor vital signs, blood pressure, urinary output #. Acute Respiratory Failure with Acute exacerbation of chronic obstructive pulmonary disease. Present on admission. Pulmonary function test from 02/25/17 shows FEV1 43% predicted, GOLD criteria stage 2. Acute on chronic COPD exacerbation due to pneumonia. RONALD with past CPAP use, but not currently compliant. - Continue BIPAP as needed while resting - Continue oxygen supplementation as needed to keep sats 88-92% - Continue home Singulair 10 mg daily - Continue home Advair (or Symbicort if not available) - Prednisone 40 mg daily x 5 days #. Community acquired pneumonia. Present on admission, Active. Does not seem to have significant Pseudomonas or MRSA risk factors. Respiratory viral PCR negative, urinary antigens negative, blood cultures no growth so far. - Continue Ceftriaxone IV and Azithromycin for empiric antibiotics #. 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 Active. Patient has previous admit for cellulitis of right side of the face and right ear 2012. Reportedly related to failure to remove right hearing aid periodically. Differential diagnosis; erysipelas, other cellulitis, otitis externa. Does not seem to be deep soft tissue infection. -Continue linezolid which has very good MSSA and MRSA coverage. - MRSA swab - ciprofloxacin ear drops. - Infectious disease consultation requested #. Hypotension, present on admission. Blood pressure 94/68 shortly after admission. Now 120/70 Stable. Received initial fluid resuscitation. - Discontinue IV fluids. - Resume Lisinopril 5 mg daily when appropriate. #. Acute on Chronic Kidney disease Stage 3. Serum creatinine on admission 1.76. Recent baseline serum creatinine 1.65. - Avoid nephrotoxic insults. Chronic or Stable but Actively Managed Problems: #. Chronic systolic Heart failure, present on admission. Active. No evidence of acute exacerbation at this time. Echo as of 07/23/2016 shows LVEF of 30-35%. - Discontinue IV fluids - The patient is on beta morgan and BUSTER inhibitor; resume these as tolerated #. Chronic atrial fibrillation. [id number] score 3 (3.2%/yr stroke risk) but patient had complications of epistasis and anticoagulations was discontinued - Continuing Carvedilol 12.5 mg bid for rate control - Continue home Aspirin - Telemetry monitoring at present #. Elevated troponin. Present on admission, improving. Temporal pattern does not suggest acute ischemia. A clearly related to CKD. - Monitor cardiac status clinically #. Coronary artery disease. History of implantable cardioverter defibrillator implantation. - Continuing home Simvastatin - Continue 81 Aspirin daily #. Conjunctivitis bilateral. - Erythromycin ophthalmic ointment - Acetaminophen as needed for mild pain/fever/headache - Bowel regimen as needed - Antiemetic as needed Patient admitted under inpatient status with expected length of stay > 2 midnights for severity of present symptoms, complexities of treatment plan and risk for adverse event. Anticipate discharge after his return to his baseline oxygen requirement of approximately 2 L/m. VTE Prophylaxis: Sub-Q Enoxaparin VTE Mechanical Devices: Intermittant Pneumatic CD Resuscitation Status: CPR: Attempt Resuscitation Time spent 35 minutes Hossein Novak MD Apr 13, 2017 14:13
[2017-04-13] MEDS: Azithromycin Inj 500 MG in Dextrose 5% w/Vial Mate 250 ML IV SCH (17:05)
--- NOTE | 2017-04-13 20:54 | CONS ---
[address] [address] CONSULTATION REPORT PATIENT: CONSTANTINE WANG : 1935 MR#: [id number] ADMIT: 04/11/2017 JOB ID: [id number] INFECTIOUS DISEASES CONSULTATION: DATE OF SERVICE: 04/13/2017 REASON FOR CONSULTATION: Possible pulmonary infection. Possible conjunctival infection and possible right facial cellulitis. I thank Dr. Chi Novak for this consult. HISTORY OF PRESENT ILLNESS: The patient is an 81-year-old gentleman known to me from a prior admission last fall. He suffers from underlying COPD as well as coronary disease with cardiomyopathy, hypertension, and some mild renal insufficiency. He has been admitted in the past with COPD exacerbations and cardiac issues. On this occasion, the patient presented to the emergency room on Thursday, April 11, and was admitted because of multiple possible issues including increasing shortness of breath with increasing cough and malaise, as well as some tenderness along the right face as well and some possible facial cellulitis and right-sided conjunctivitis. Note that the patient has had a series of possible episodes of facial cellulitis and ear infections due to his failure to take out his hearing aids or clean them properly. At the time of admission, it was felt the patient likely had pneumonia as well as possible conjunctivitis and/or facial cellulitis and he was started on broad-spectrum antibiotics, which initially included azithromycin and ceftriaxone. He subsequently was failing to improve and there were concerns about his facial cellulitis being MRSA, so linezolid was added to the azithromycin and ceftriaxone. Today, he has been in the hospital a little more than 36 hours and reports he is dramatically better. His right eye is bothering him much less, his right facial warmth and tenderness have almost resolved, and he notes that his cough and breathing issues are approaching baseline. Note that his baseline breathing is not good and he uses oxygen at night, but not in the daytime, and suffers from chronic dyspnea. At this point, the patient tells us though that he is approaching normal and is starting to inquire about possibly going home. Infectious Disease consultation is requested regarding optimal antibiotics and their duration. PAST MEDICAL HISTORY: 1. Organic heart disease. a. Afib. b. Coronary artery disease. c. Defibrillator implant. d. Cardiomyopathy with major reduction in ejection fraction. 2. COPD. 3. Hypertension. 4. Chronic renal insufficiency. 5. 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 SOCIAL HISTORY: The patient quit smoking in the 1970s, does not drink alcohol. 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 FAMILY HISTORY: Negative for second-degree relatives for TB. REVIEW OF SYSTEMS: No significant headache today. He reports that his eyes are basically back to normal and the inflammation in his right eye seems to have resolved. He is having no trouble swallowing. No sore throat. He has some cough, but it is improved over admission when it was quite productive. No significant shortness of breath, but he is still on 4 L, 6 L by nasal prongs, which is way above his baseline nocturnal supplementation. He is not having chest pain, not having nausea, vomiting, or diarrhea. The redness around his right lower face has improved and is no longer bothering him. No diarrhea is noted. He has a Dai catheter which he does not have at home and this should be removed if at all possible. He has minimal edema in his legs.Remainder of the ROS is negative PHYSICAL EXAMINATION: Reveals an afebrile gentleman. Vital signs: Temperature 36.7 degrees. He has been afebrile since admission. Pulse 82, respiratory rate 20, blood pressure 109/87, saturating 94% on 6 L. General: He is in no acute distress, sitting up, reading the paper. His mental status is good. It is difficult to assess, however, because he is so hard of hearing despite having his left hearing aid in place. There is no head trauma. His eyes without conjunctivitis and I do not see any evidence of periorbital infection at this point either. His nose is normal. Oral cavity without thrush or pharyngitis. His neck is somewhat obese and hard to examine, basically nontender. The right facial cellulitis that was seen on admission a twv-pyq-s-half ago was essentially resolved and the right side of his face is no longer warm or tender. His lungs are quite clear and observers who listened just hours ago had noted a great deal of rales and rhonchi, which suggests that this was mechanical rather than infection, at least in part. Cardiac tones are deceiving and sound rather regular, but in looking at the monitor, remains in AFib just with a relatively steady rate. No significant murmurs are appreciated. The abdomen is obese, soft, nontender without masses. He has a Dai catheter in place. No suprapubic fullness. His extremities are with minimal peripheral edema. His upper extremity pulses are normal. Joints are without evidence of synovitis. There is no notable skin rash. Mental status seems clear, though it is difficult to establish with his hearing problems. LABORATORIES: Include a white count of 11.7 when he arrived in the ER, 87% segs. His creatinine is 1.64. Pro calcitonin 0.18. Urinalysis without white cells. Serology includes negative urine Legionella and pneumococcal antigens. The initial sputum sample was largely just squamous cells and was rejected by the laboratory. Respiratory virus, PCR negative. Blood cultures negative so far. IMAGING: Reviewed on the view screen. His chest x-rays show bilateral patchy infiltrates, perhaps more on the left with retrocardiac infiltrate which could be compatible with pneumonia or atelectasis. IMPRESSION: This is an 81-year-old gentleman, well known to this facility, with severe chronic obstructive pulmonary disease as well as underlying cardiac disease. The patient developed what sounds like primarily respiratory tract infection with associated conjunctivitis and right facial cellulitis. After only 36 hours or so in the hospital, he is quite a bit better though we remains dependent on relatively high flow nasal oxygen at 6 L. The fact his lungs are now so clear posteriorly makes me wonder whether a lot of what we saw on the chest x-ray was atelectasis, but it is nonetheless reasonable to proceed with at least a short course of fairly aggressive antibiotics. Note that his procalcitonin was never greater than 0.2 though, which would be underwhelming in terms of a serious bacterial pneumonia. His facial cellulitis and eye issues also seem to be resolving quickly. RECOMMENDATIONS: 1. MRSA screen has been ordered. If the MRSA screen is negative, then linezolid can be dropped. 2. He has had two days of azithromycin. Will get a third dose this evening. After this evening's dose, I would discontinue the azithromycin as he received a 1.5 g dose which should be adequate. 3. Will continue with ceftriaxone for now. 4. Will continue to closely watch this interesting patient with you. Thank you very much for this consult. [facility]
[2017-04-14] VITALS (13 sets, daily range): BP systolic 102–135; BP diastolic 72–84; PULSE 68–118; RESP 14–24; O2SAT 93–98
[2017-04-14] MEDS: Albuterol-Ipratropium 3 mL Inhalation Solution NEB SCH ×6 (00:29→19:56)
--- NOTE | 2017-04-14 06:30 | NUR ---
Tele/O2 Pt tele at start of shift was in Afib w/ a rate of 90s-120s, pt denied symptoms, given HS metoprolol dose and rate has been 70s-80s for most of the shift since. Pt O2 sats continually dropped to low to mid 80s at shift change, pt changed to oxymask and soon after RT applied BiPAP. With lower FiO2 pt would desat to low to mid 80s frequently. Ultimately RT kept BiPAP w/ FiO2 of 40% and sats maintained. Monitored on [employer]. Pt denied SOB throughout night, encouraged to cough and deep breathe as he sounds somewhat course but cannot cough up much. Pt denied pain throughout shift.
[2017-04-14] MEDS: predniSONE 20 mg Tablet PO SCH (09:11)
[2017-04-14] MEDS: Ciprofloxacin-Dexamethasone 7.5 mL Otic Susp RIGHT_EAR SCH ×2 (09:11→21:26)
[2017-04-14] MEDS: Fluticasone-Salmeterol 500-50 Inhaler INHALATION SCH ×2 (09:12→21:26)
[2017-04-14] MEDS: Linezolid Inj 600 MG in IV Premix 1 EACH IV SCH (09:26)
--- NOTE | 2017-04-14 09:32 | PROG NOTE ---
[address] [address] PROGRESS NOTE PATIENT: CONSTANTINE WANG : 1935 MR#: [id number] ADMIT: 04/11/2017 JOB ID: [id number] DATE: 04/14/2017 REASON FOR FOLLOWUP: Right facial cellulitis and COPD exacerbation. INTERVAL HISTORY: Overnight, the patient reports his right facial cellulitis is much better, though he still has some puffiness under his right eye as well as some increased tearing from that right eye. He is having no fevers, chills, or sweats. He denies significant shortness of breath, though he remains on nasal oxygen which he continues to require, which he does not apparently use consistently at home. No other new complaints. This case discussed in detail at the bedside which Chi Novak and the hospitalist team. PHYSICAL EXAMINATION: Reveals an elderly gentleman in no acute distress. Temp 36.6, pulse 80, respiratory rate 20, blood pressure 114/75. He is saturating well but still requiring 4 L. Examination of the right mandibular area reveals that the tenderness and erythema there is completely resolved. There is no tenderness or erythema either around the right ear, but there is some diffuse swelling which is relatively nontender, but erythematous underneath the right eye with some minimal tearing from the right eye. Oral cavity negative. Lungs with a few scattered crackles at the bases. No skin rash. No abdominal findings. LABORATORY DATA: The patient's white count is 7900, platelets 154. Creatinine 1.64. Procalcitonin 0.18. Urine Legionella and pneumococcus negative. Nasal smear positive for MRSA. No chest x-ray now for two days. IMPRESSION: This is an 81-year-old gentleman with longstanding chronic obstructive pulmonary disease as well as organic heart disease. He was admitted with some respiratory tract decompensation as well as apparent conjunctivitis and right facial cellulitis. He is improving after about two and half days in the hospital but still requiring considerable nasal oxygen which he does not use consistently at home, though he does have some oxygen use at night. His right facial cellulitis seems better, but there is still some puffiness under the right eye and he continues to be treated for conjunctivitis. RECOMMENDATIONS: 1. We can discontinue ceftriaxone at this point, and just treat exclusively with linezolid, with a plan to extend linezolid for about a 10 day course which would take us through about April 22. 2. Will get a two-view chest x-ray downstairs to clarify what is going on in his lungs. 3. Linezolid can be switched to p.o., and I will mention this to the ICU pharmacist. 4. Will continue to follow up with you tomorrow, but hopefully, if his chest x-ray looks good and his oxygen requirements continue to drop, he can be discharged soon on oral linezolid.
--- NOTE | 2017-04-14 15:23 | PCM.PNMED ---
Subjective Date of Service Apr 14, 2017 Subjective 81-year-old man with COPD on 2 L home O2, ischemic cardiomyopathy LVEF 30-35% presents with 2 weeks of increased productive cough and dyspnea, as well as facial cellulitis. The patient seems to deny symptoms, but states he is breathing more comfortably today. His cough is nonproductive. Patient tolerates BiPAP. Reduced right cheek pain, no neck pain. Exam Vital Signs Vital Sign - Last Date Time Temp Pulse Resp B/P Pulse Ox O2 Delivery O2 Flow Rate FiO2 04/14/17 13:09 97 14 95 Nasal Cannula 4.00 04/14/17 12:29 36.5 132/81 04/14/17 04:00 40 Intake and Output 04/13/17 04/13/17 04/14/17 Cumulative From/Thru 15:00 23:00 07:00 04/11/17 16:30 - 04/14/17 06:30 Intake Total 2247 ml 741 ml 9886 ml Output Total 550 ml 500 ml 3550 ml Balance 1697 ml 241 ml 6336 ml Intake Oral 736 ml 300 ml 2416 ml IV Total 1511 ml 441 ml 7470 ml Output Urine Total 550 ml 500 ml 3550 ml # Voids 9 # Bowel Movements 2 Exam General: Obese elderly gentleman, hard of hearing, no acute distress HEENT: Right-sided face is reddened and swollen without warmth. Sclerae anicteric, oral mucosa moist; sclera injected bilaterally Neck: No tender deep structures, no JVD Chest: No wheezing; coarse breath sounds with bibasilar crackles Cardiac: S1S2, no murmur appreciated Abdomen: BS normal, non-tender Extremities: No pedal edema Neuro: A&O, hard of hearing, cranial nerves symmetric, motor strength and coordination generally normal IVs and Medications Medications Reviewed: Medications were reviewed in detail Lab and Diagnostics Result Diagram: 04/13/1723404/13/17234 X-Rays, CTs and MRIs PROCEDURE: X-RAY CHEST ONE VIEW, PORTABLE ([id number]) FINDINGS: Lungs and pleura: There is a poor depth of inspiration. There are patchy areas of density in the lower lung morgan. The appearance would suggest pneumonia rather than failure. IMPRESSION: Changes consistent with pneumonia versus less likely I think atelectasis in this patient with poor depth of inspiration. Dictated by: Elie Leavitt M.D. on 04/11/2017 at 16:59 PROCEDURE: X-RAY CHEST ONE VIEW, PORTABLE ([id number]) FINDINGS: Lungs and pleura: No pleural effusions or pneumothorax. Retrocardiac patchy consolidation is unchanged. There is mild right mid and lower lobe opacities which may be mildly improved to stable since earlier same day. Mediastinum: Mediastinal contours appear normal. Heart size is normal. IMPRESSION: Bilateral patchy consolidative and groundglass opacities, most pronounced in the retrocardiac region, suggestive of pneumonia (versus aspiration/atelectasis ) as above. Please correlate clinically. Dictated by: Malcom Cox M.D. on 04/12/2017 at 7:58 . 12-lead ECG 04/11/17 16:48 A. fib, rate 100, normal conduction intervals, no acute ST changes . Assessment & Plan Acute, Active or High-risk Problems: #. Acute Respiratory Failure with Acute exacerbation of chronic obstructive pulmonary disease. Present on admission. Pulmonary function test from 02/25/17 shows FEV1 43% predicted, GOLD criteria stage 2. Acute on chronic COPD exacerbation due to pneumonia. RONALD with past CPAP use, but not currently compliant. He received prescription for Trilogy in the past but was unable to afford this. He only uses oxygen at night because he prefers to remain busy during the day. Currently his wheezing is resolved but he continues to require more than his usual 2 L oxygen. His possible that we are see history of baseline and that his prior prescription for 2 L has been inadequate. - Encourage nocturnal CPAP use - Continue to titrate and wean oxygen supplementation as needed to keep sats 88- 92% - Prednisone 40 mg daily x 5 days; day 1 was 04/12 - Respiratory therapy assessment for home oxygen needs #. Community acquired pneumonia. Present on admission, Active. Does not seem to have significant Pseudomonas or MRSA risk factors. Respiratory viral PCR negative, urinary antigens negative, blood cultures no growth so far. - Continue Ceftriaxone IV and Azithromycin for empiric antibiotics #. 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 Active. Patient has previous admit for cellulitis of right side of the face and right ear 2012. Reportedly related to failure to remove right hearing aid periodically. Differential diagnosis; erysipelas, other cellulitis, otitis externa. Does not seem to be deep soft tissue infection. - Continue linezolid for facial cellulitis with positive MRSA swab - ciprofloxacin ear drops. - Infectious disease consult following #. Acute on Chronic Kidney disease Stage 3. Serum creatinine on admission 1.76. Recent baseline serum creatinine 1.65. - Avoid nephrotoxic insults. Chronic or Stable but Actively Managed Problems: #. SIRS, present on admission. Active. Respiratory rate 24, pulse 92. Blood pressure 94/68 shortly after admission. Now 120/70, Afebrile, normotensive with borderline WBC elevation. Not clinically septic. Mild SIRS due to respiratory distress, COPD and cellulitis. Continues to show tachypnea and tachycardia. - Resolved - Continue to monitor vital signs, blood pressure, urinary output #. Chronic systolic Heart failure, present on admission. Active. No evidence of acute exacerbation at this time. Echo as of 07/23/2016 shows LVEF of 30-35%. - Discontinue IV fluids - The patient is on beta morgan and BUSTER inhibitor; resume these as tolerated #. Chronic atrial fibrillation. [id number] score 3 (3.2%/yr stroke risk) but patient had complications of epistasis and anticoagulations was discontinued - Continuing Carvedilol 12.5 mg bid for rate control - Continue home Aspirin - Telemetry monitoring at present #. Elevated troponin. Present on admission, improving. Temporal pattern does not suggest acute ischemia. A clearly related to CKD. - Monitor cardiac status clinically #. Coronary artery disease. History of implantable cardioverter defibrillator implantation. - Continuing home Simvastatin - Continue 81 Aspirin daily #. Conjunctivitis bilateral. - Erythromycin ophthalmic ointment - Acetaminophen as needed for mild pain/fever/headache - Bowel regimen as needed - Antiemetic as needed Disposition: He is substantially recovered from acute COPD flare. Checks x-ray shows persistent bibasilar infiltrates, atelectasis or heart failure. He continues to have greater than usual oxygen needs. Anticipate discharge after his return to baseline oxygen requirement of approximately ~2-4 L/m, likely on , possibly increase with his home oxygen prescription. VTE Prophylaxis: Sub-Q Enoxaparin VTE Mechanical Devices: Intermittant Pneumatic CD Resuscitation Status: CPR: Attempt Resuscitation Time spent 35 minutes Hossein Novak MD Apr 14, 2017 15:23
--- NOTE | 2017-04-14 15:26 | NUR ---
Social Work: Attempted Assessment/Continued Discharge Planning D: EMR reviewed. Pt is on day 3 of hospitalization. SW attempted to meet with pt but pt was being seen by medical staff. RT notified SW that pt's insurance has authorized BiPAP machine and pt's copay will be $80. RT requested SW contact pt's NOK to determine if pt or family can pay copay for BiPAP. SW attempted to call NOK Quang Pop [phone] but voicemail is not set up. SW will continue to call son. SW updated RN on pt's discharge plan and pending contact with NOK. RN stated that pt is very hard of hearing but is decisional. SW will continue to try and contact NOK and update note. A: Pt for whom a BiPAP machine has been deemed medically necessary. P: SW to follow-up with pt and NOK regarding BiPAP co-pay and update MD. Pt likely to discharge once BiPAP copay costs can be covered. JULISA Rojas
--- NOTE | 2017-04-14 18:17 | NUR ---
Activity/Respiratory A/Ox3, up to chair for extended period this AM, and meals. Dai d/c, urinal at BS, 1P assist to BR. Spo2 in 80's - 90's on 6L, requires Bipap when sleeping. Spo2 fluctuated more this afternoon, noted to have poor perfusion to fingers and weak pleth. Warm blanket applied to hand. Encouraged more PO to increase UOP, activity to strengthen for discharge - home Bipap planned and coordinating in place.
[2017-04-15 01:01] VITALS: BP 130/82; RESP 22; O2SAT 93
[2017-04-15] MEDS: Albuterol-Ipratropium 3 mL Inhalation Solution NEB SCH ×3 (01:01→09:19)
[2017-04-15 03:14] VITALS: BP 126/81; PULSE 92; RESP 24; O2SAT 95
[2017-04-15 05:23] VITALS: BP 127/84; RESP 28; O2SAT 95
--- NOTE | 2017-04-15 07:12 | NUR ---
O2/Restful Night Pt on BiPAP throughout night, FiO2 at 40%, monitored on TREAD BUILDER, pt denied pain or SOB. Q4 nebs done. Tele Afib 80s-90s after HS metoprolol. Pt appeared to sleep comfortably between care interventions overnight.
[2017-04-15 07:37] VITALS: BP 125/79; PULSE 84; PULSE 96; RESP 27; O2SAT 96
[2017-04-15 09:20] VITALS: PULSE 93; RESP 22; O2SAT 97
[2017-04-15] MEDS: Fluticasone-Salmeterol 500-50 Inhaler INHALATION SCH (09:34)
[2017-04-15] MEDS: predniSONE 20 mg Tablet PO SCH (09:35)
[2017-04-15] MEDS: Ciprofloxacin-Dexamethasone 7.5 mL Otic Susp RIGHT_EAR SCH (09:36)
--- NOTE | 2017-04-15 09:36 | DRSVH ---
PROCEDURE: X-RAY CHEST, TWO VIEWS ([id number]) INDICATIONS: shortness of breath, O2 dependent TECHNIQUE: 2 views of the chest were acquired. COMPARISON: [facility], CR, XR CHEST 1VW (PORTABLE), 04/12/2017, 4:42. formerly [facility], CR, XR CHEST 2VW, 02/04/2017, 11:30. FINDINGS: Surgical changes and devices: Stable position of left chest AICD. Lungs and pleura: Persistent air space opacity of the left lung base and there has been interval incr ease in airspace opacity involving the right lung base. No pneumothorax. Mediastinum: Mediastinal contours are normal. Heart size is normal. Bones and chest wall: No suspicious bony abnormalities. Soft tissues appear unremarkable. Healed r ight sixth posterior lateral rib fracture redemonstrated. IMPRESSION: Persistent left and increased right basilar patchy airspace opacity suggesting worsening aspiration or pneumonia. Dictated by: Chi Vigil A Interpreted: Sophie Lang MD on 04/14/2017 at 10:42 Approved by: Sophie Lang M.D. on 04/15/2017 at 9:34
[2017-04-15 10:18] VITALS: PULSE 92
--- NOTE | 2017-04-15 10:50 | PROG NOTE ---
[address] [address] PROGRESS NOTE PATIENT: CONSTANTINE WANG : 1935 MR#: [id number] ADMIT: 04/11/2017 JOB ID: [id number] DATE: 04/15/2017 REASON FOR FOLLOWUP: Right facial cellulitis combined with possible pneumonia superimposed on substrate of COPD. INTERVAL HISTORY: Today, the patient feels ready to go home. He denies any fevers, chills, or sweats. He notes his right facial cellulitis essentially resolved. He is not especially short of breath as compared to his baseline. No new cough. No pleuritic chest pain, nausea, or vomiting. PHYSICAL EXAMINATION: Reveals an afebrile gentleman, temperature 36.5, pulse 93 respiratory 22, blood pressure 125/79, saturating well on 5 L no acute distress. His right facial cellulitis essentially resolved. I saw some increased conjunctival hyperemia on the right, but there is no tenderness below the right eye nor is there any tenderness around the right mandible and the right ear. His lung exam is notable for coarse rales and rhonchi of the left lower lobe. The abdomen is benign. No new other findings. No CBC was done today. Our last white count two days ago was normal at 7900. Our last creatinine two days ago 1.64. Procalcitonin last done on the was stable at 0.18 as compared to prior values. The nasal MRSA screen is positive and confirmed positive by culture. Sputum culture with some minimal mixed daquan and unimpressive Gram stain. No polys were even seen. No positive blood cultures. Imaging done yesterday includes a chest radiograph that shows left basilar airspace opacity. IMPRESSION: This patient has improved considerably with respect to his right facial cellulitis and possible pulmonary infection at least by clinical criteria. At this point, the patient feels ready for discharge later today. In reviewing the radiograph from yesterday, to me this has the feel of atelectasis. There is some platelike consolidations in the bases. Whether or not this represents atelectasis, scarring, or new infiltrate is unclear, but the patient certainly is not behaving as if he has a significant new pulmonary process. RECOMMENDATIONS: 1. The patient is ready for discharge from an Infectious Disease point of view and should stay on linezolid through April 22 which would be about one more week from today. 2. The linezolid obviously can be given by the oral route. Given his normal platelet count today, I do not think we will need to repeat any labs until we finished the linezolid. Given his normal platelet count of 2 days ago I do not think we need to repeat one as short course of linezolid tend to be well tolerated in terms of thrombocytopenia. 3. The patient will be using his Trilogy and/or CPAP more at home as he has not always been completely compliant with this. In addition he may need nasal oxygen during the day as well as supplemental oxygen at night given his rather severe and chronic underlying lung disease. 4. ID will go ahead and sign off at this time.
--- NOTE | 2017-04-15 11:02 | PCM.DIMED ---
Discharge Instructions Date of Service Apr 15, 2017 Dates of Hospitalization Apr 11, 2017 at 20:40 Discharge Diagnosis Discharge Diagnosis #. Acute Respiratory Failure with Acute exacerbation of chronic obstructive pulmonary disease. Proved #. Community acquired pneumonia. Improved #. Acute on chronic facial cellulitis, resolved #. Acute on Chronic Kidney disease Stage 3. Improved #. SIRS, present on admission. Resolved #. Chronic systolic Heart failure, present on admission. Stable #. Chronic atrial fibrillation. [id number] score 3 (3.2%/yr stroke risk) but patient had complications of epistasis and anticoagulations was discontinued #. Elevated troponin. Improved #. Coronary artery disease. Stable #. Conjunctivitis bilateral. Resolved. Diet Discharge Diet: No restrictions Activity Discharge Activity: No restrictions Call your provider Call your provider for: Fever or Chills, Shortness of breath Patient Instructions Follow-up Provider: Lenore Pruitt MD Follow-up with PCP in: 1 week Russell Myles MD Apr 15, 2017 11:02
[2017-04-15] MEDS ORDERED: LINE600T2 PO (11:08)
--- NOTE | 2017-04-15 12:59 | NUR ---
Social work note - Assessment and discharge Markie Pop is a 81 yr old who was admitted for sepsis, resp distress. EMR reviewed: Pt has [employer] plan. His PCP is Dr Pruitt. No LTC insurance, no VA benefits. Readmit score is 2 - moderate. Pt has no DPOA - Pt refused paperwork, stating that his kids will be his decision maker. See attached CM initial assessment. [employer] met with pt - introduced D/C planning and explained SW role. Pt lives at home in [place] with his family. He uses a cane, walker and wheelchair when needed. Has Life line. He has O2 through [employer] - MD is ordering Bipap for home. [employer] discussed With RT Rajeev Damon who will make sure arrangements are made for [employer]. Pt states he is able to pay the $80 copay. His son is able to take him home. He lives with his daughter who provides support. Plan: Home with family in [facility] with Bipap ordered through [employer]. LUCIANA Beebe Addendum: 04/15/17 at 1304 by ADARSH HERNANDEZ SS Amended: Links added.
--- NOTE | 2017-04-15 14:02 | NUR ---
D/C note.. Pt has been up amb in room on nasal cannula and is ward activity well denying any SOB. Seen by MD and d/c order written. When reviewing pt's d/c meds with him, he states he only takes Lasix daily, not BID as ordered. Dr Myles updated and ok given for pt to take dose daily. CHF teaching reviewed and pt states he is monitoring his weight at home. D/C'd home with belongings with his son who brought in pt's own home O2 tank for the drive home.
--- NOTE | 2017-04-15 16:24 | PCM.DC.MED ---
Discharge Summary Date of Service Apr 15, 2017 Dates of Hospitalization Date of Hospital Admission Apr 11, 2017 at 20:40 Date of Discharge: Apr 15, 2017 Providers: Admitting Physician: Sergio Gabriel MD Primary Care Physician: Lenore Pruitt MD Attending Physician: Sergio Gabriel MD Diagnosis at Time of Discharge Diagnosis at Time of Discharge #. Sepsis, resolved. Source was pneumonia and cellulitis. #. Acute Respiratory Failure with Acute exacerbation of chronic obstructive pulmonary disease. Proved #. Community acquired pneumonia. Improved #. Acute on chronic facial cellulitis, resolved #. Acute on Chronic Kidney disease Stage 3. Improved #. SIRS, present on admission. Resolved #. Chronic systolic Heart failure, present on admission. Stable #. Chronic atrial fibrillation. [id number] score 3 (3.2%/yr stroke risk) but patient had complications of epistasis and anticoagulations was discontinued #. Elevated troponin. Improved #. Coronary artery disease. Stable #. Conjunctivitis bilateral. Resolved. Consultations Infectious disease, Dr. Wall Procedures XRay, CTs & MRIs PROCEDURE: X-RAY CHEST ONE VIEW, PORTABLE ([id number]) FINDINGS: Lungs and pleura: There is a poor depth of inspiration. There are patchy areas of density in the lower lung morgan. The appearance would suggest pneumonia rather than failure. IMPRESSION: Changes consistent with pneumonia versus less likely I think atelectasis in this patient with poor depth of inspiration. Dictated by: Elie Leavitt M.D. on 04/11/2017 at 16:59 PROCEDURE: X-RAY CHEST ONE VIEW, PORTABLE ([id number]) FINDINGS: Lungs and pleura: No pleural effusions or pneumothorax. Retrocardiac patchy consolidation is unchanged. There is mild right mid and lower lobe opacities which may be mildly improved to stable since earlier same day. Mediastinum: Mediastinal contours appear normal. Heart size is normal. IMPRESSION: Bilateral patchy consolidative and groundglass opacities, most pronounced in the retrocardiac region, suggestive of pneumonia (versus aspiration/atelectasis ) as above. Please correlate clinically. Dictated by: Malcom Cox M.D. on 04/12/2017 at 7:58 . ECG 12 Lead 04/11/17 16:48 A. fib, rate 100, normal conduction intervals, no acute ST changes . Brief History Pt is an 81 year old male with a history of COPD, HTN, pacemaker insertion, and CAD, systolic heart failure with an EF of 30-35% as of 07/23/2016. Who presents to the ED complaining of SOB onset prior to arrival. He c/o associated productive cough with yellow sputum for the past 2 weeks, left neck pain, erythema and swelling on right side of face, and abdominal pain. Per family, the pt was asking to come to the hospital, which is unusual for him. The pt had been complaining about facial pain and erythema for the past week. He has had a facial infection before because he will not take his hearing aides out. He was also seen last year in [facility] for nearly identical presentation aside from facial pain but reports he was cutting his grass on his riding on his lawnmower , and stopped early, came inside and told his family has not been feeling well. He is on 2-3 L O2 at night by nasal cannula. In the past he was prescribed trilogy device which apparently was discontinued 2 months ago for unknown reasons at this point. He was also on a CPAP machine years ago but decided he did when he uses it anymore. Vitals in the emergency department upon admission were as follows; temperature 36.7, pulse 50, respiratory rate 34, blood pressure 128/82, pulse ox 68% on 2 L nasal cannula, when pulse ox was adjusted or changed to his ear he was reported to be 94-100% sats on BiPAP and 24 FiO2. His labs upon admission were white count 11.7, hemoglobin 15.6, platelets 180, neutrophils 87.2, sodium 143, potassium 4.8, chloride 99, carbon dioxide 28, BUNs 37, creatinine 1.76. Glucose 101, lactic acid was initially elevated 2.4, troponins on initial values were 0.052 Blood cultures 2 pending, urinary cultures ordered, strep pneumo antigen, Legionella urine antigen ordered, viral PCR ordered, MRSA nasal ordered, sputum culture ordered. Chest x-ray as reviewed by the radiologist shows changes consistent with pneumonia versus less likely atelectasis. EKG shows an A. fib, minor right axis deviation, no ST elevations or depressions. Rate 102. ABG on arrival with pH 7.37, CO2 52, O2 180 and calculated CO2 30, Repeat ABG with pH 7.4, CO2 48, O2 53, titrated CO2 29 In the emergency department patient received ceftriaxone and azithromycin. Hospital Course Acute, Active or High-risk Problems: #. Acute Respiratory Failure with Acute exacerbation of chronic obstructive pulmonary disease. Present on admission. Pulmonary function test from 02/25/17 shows FEV1 43% predicted, GOLD criteria stage 2. Acute on chronic COPD exacerbation due to pneumonia. RONALD with past CPAP use, but not currently compliant. He received prescription for Trilogy in the past but was unable to afford this. He only uses oxygen at night because he prefers to remain busy during the day. Currently his wheezing is resolved but he continues to require more than his usual 2 L oxygen. His possible that we are see history of baseline and that his prior prescription for 2 L has been inadequate. - Encourage nocturnal CPAP use - Continue to titrate and wean oxygen supplementation as needed to keep sats 88- 92% - Prednisone 40 mg daily x 5 days; day 1 was 04/12 - Respiratory therapy assessment for home oxygen needs The patient improved on standard treatment for acute COPD exacerbation. Was able to wean off from his noninvasive positive pressure ventilation to oxygen about 2 L. #. Community acquired pneumonia. Present on admission, Active. Does not seem to have significant Pseudomonas or MRSA risk factors. Respiratory viral PCR negative, urinary antigens negative, blood cultures no growth so far. - Continue Ceftriaxone IV and Azithromycin for empiric antibiotics He was treated for pneumonia with ceftriaxone and azithromycin again had standard improvement. #. 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 Active. Patient has previous admit for cellulitis of right side of the face and right ear 2012. Reportedly related to failure to remove right hearing aid periodically. Differential diagnosis; erysipelas, other cellulitis, otitis externa. Does not seem to be deep soft tissue infection. - Continue linezolid for facial cellulitis with positive MRSA swab - ciprofloxacin ear drops. - Infectious disease consult following He initially had evidence of any facial cellulitis which again did improve with IV antibiotics. #. Acute kidney injury on Chronic Kidney disease Stage 3. Serum creatinine on admission 1.76. Recent baseline serum creatinine 1.65. - Avoid nephrotoxic insults. This improved with fluid resuscitation as well. #. SIRS, present on admission. Active. Respiratory rate 24, pulse 92. Blood pressure 94/68 shortly after admission. Now 120/70, Afebrile, normotensive with borderline WBC elevation. Not clinically septic. Mild SIRS due to respiratory distress, COPD and cellulitis. Continues to show tachypnea and tachycardia. - Resolved - Continue to monitor vital signs, blood pressure, urinary output SIRS resolved with treatment of his primary infection. #. Chronic systolic Heart failure, present on admission. Stable. No evidence of acute exacerbation at this time. Echo as of 07/23/2016 shows LVEF of 30-35%. - Discontinue IV fluids - The patient is on beta morgan and BUSTER inhibitor; resume these as tolerated. This remained compensated throughout hospitalization. #. Chronic atrial fibrillation. [id number] score 3 (3.2%/yr stroke risk) but patient had complications of epistasis and anticoagulations was discontinued - Continuing Carvedilol 12.5 mg bid for rate control - Continue home Aspirin - Telemetry monitoring at present #. Elevated troponin. Present on admission, improving. Temporal pattern does not suggest acute ischemia. A clearly related to CKD. - Monitor cardiac status clinically, patient had no evidence of cardiac ischemia and no further workup ensued. #. Coronary artery disease. History of implantable cardioverter defibrillator implantation. - Continuing home Simvastatin - Continue 81 Aspirin daily #. Conjunctivitis bilateral., Resolved. - Erythromycin ophthalmic ointment - Acetaminophen as needed for mild pain/fever/headache - Bowel regimen as needed - Antiemetic as needed Disposition: He is substantially recovered from acute COPD flare. Checks x-ray shows persistent bibasilar infiltrates, atelectasis or heart failure. He continues to have greater than usual oxygen needs. Anticipate discharge after his return to baseline oxygen requirement of approximately ~2-4 L/m, likely on , possibly increase with his home oxygen prescription. Exam Vital Signs (Last) Date Time Temp Pulse Resp B/P Pulse Ox O2 Delivery O2 Flow Rate FiO2 04/15/17 10:18 92 04/15/17 09:20 22 97 Nasal Cannula 5.00 04/15/17 07:37 36.5 125/79 04/15/17 05:23 40 Exam Patient was seen and examined the day of discharge Test 04/11/17 00:15 04/11/17 16:44 04/11/17 20:10 04/12/17 03:20 Urine Color Dark yellow (YELLOW) Urine Appearance Clear (CLEAR,HAZY) Urine pH 5.5 (5.0-8.0) Urine Specific [place] 1.020 (1.003-1.035) Urine Protein 30mg/dL (NEG,TRACE) Urine Glucose (UA) Negativemg/dL (NEGATIVE) Urine Ketones Negativemg/dL (NEGATIVE) Urine Occult Blood Trace (NEGATIVE) Urine Nitrite Negative (NEGATIVE) Urine Bilirubin Negative (NEGATIVE) Urine Urobilinogen Normalmg/dL (NORMAL) Urine Leukocyte Esterase Negative (NEGATIVE) Urine RBC 3-10/hpf (0-2) Urine WBC 0-5/hpf (0-5) Urine Epithelial Cells Occasional/hpf (NONE-MOD) Urine Crystals Amorphous urates (NONE Urine Bacteria Few/hpf (NONE-FEW) Urine Hyaline Casts None/lpf (NONE) Urine Granular Casts None seen (NONE SEEN) Urine Waxy Casts None seen (NONE SEEN) Urine Red Blood Cell Casts None seen (NONE SEEN) Urine White Blood Cell Casts None seen (NONE SEEN) Urine Mucus None seen (None Seen) Urine Trichomonas None seen (NONE SEEN) Urine Yeast None (NONE SEEN) Urinalysis Comment None Urine Culture Reflexed Not indicated Urine Legionella pneumophilia Ag Negative (Negative) Prothrombin Time 10.8sec (8.1-12.5) Prothromb Time International Ratio 1.01ratio Hemoglobin A1c 5.6% (4.8-5.6) Magnesium Level 2.1mg/dL (1.6-2.6) Total Bilirubin 0.8mg/dL (0.0-1.2) Aspartate Amino Transf (AST/SGOT) 23U/L (0-50) Alanine Aminotransferase (ALT/SGPT) 12U/L (0-44) Alkaline Phosphatase 88U/L (25-160) Pro-B-Type Natriuretic Peptide 8354pg/mL (0-486) Total Protein 7.7g/dL (6.4-8.4) Albumin 4.2g/dL (3.4-5.0) Lactic Acid Level 1.4mmol/L (0.4-2.0) Troponin T 0.053ug/L (0.0-0.011) Test 04/13/17 02:35 White Blood Count 7.9th/mm3 (3.8-10.1) Red Blood Count 3.85mil/mm3 (4.40-5.80) Hemoglobin 13.1g/dL (13.8-17.2) Hematocrit 41.1% (41.0-50.0) Mean Corpuscular Volume 106.8fL (81-100) Mean Corpuscular Hemoglobin 34.0pg (27.0-35.0) Mean Corpuscular Hemoglobin Concent 31.9% (32.0-37.0) Red Cell Distribution Width 15.5% (12.3-15.4) Platelet Count 154bil/L (150-400) Neutrophils (%) (Auto) 85.0% (40-74) Lymphocytes (%) (Auto) 4.6% (14-46) Monocytes (%) (Auto) 10.1% (4-12) Eosinophils (%) (Auto) 0% (0-5) Basophils (%) (Auto) 0% (0-3) Sodium Level 141mEq/L (134-144) Potassium Level 5.2mEq/L (3.5-5.2) Chloride Level 102mEq/L (97-108) Carbon Dioxide Level 27mmol/L (18-29) Blood Urea Nitrogen 42mg/dL (8-27) Creatinine 1.64mg/dL (0.76-1.27) Estimat Glomerular Filtration Rate 43mL/min (>59) Glucose Level 160mg/dL (60-99) Calcium Level 7.9mg/dL (8.5-10.1) Phosphorus Level 3.2mg/dL (2.5-4.9) Procalcitonin 0.18ng/mL (0.00-0.08) Microbiology Results Nares PCR for MRSA positive Discharge Medications Discharge Medications Aspirin (Aspirin) 81 Mg Tablet 162 MG PO DAILY (Reported) Atorvastatin Calcium (Atorvastatin Calcium) 10 Mg Tablet 10 MG PO HS Prescribed by: SETH BROWN DO Calcium Carbonate (Calcium) 600 Mg Tablet 500 MG PO DAILY (Reported) Fluticasone/Salmeterol (Advair 500-50 Diskus) 1 Each Disk.w.dev 1 PUFF IH BID ( Reported) Furosemide (Lasix) 40 Mg Tablet 40 MG PO BID (Reported) Linezolid (Zyvox) 600 Mg Tablet 600 MG PO BID Prescribed by: RUSSELL BECKFORD MD Lisinopril (Lisinopril) 5 Mg Tablet 5 MG PO DAILY (Reported) Loratadine (Claritin) 10 Mg Capsule 10 MG PO DAILY (Reported) Metoprolol Tartrate (Metoprolol Tartrate) 25 Mg Tablet 25 MG PO BID Prescribed by: SETH BROWN DO Montelukast (Singulair) 10 Mg Tablet 10 MG PO HS (Reported) Omeprazole (Omeprazole) 20 Mg Capsule.dr 20 MG PO BID (Reported) As needed Albuterol Neb Soln (Albuterol Neb Soln) 2.5 Mg/3 Ml Vial.neb 2.5 MG INHALATION Q4H PRN PRN For Wheezing (Reported) Miscellaneous Medications Guaifenesin (Guaifenesin) 500 Gm Powder 500 GM MC (Reported) Followup Plan Disposition: Home Discharge Diet: No restrictions Discharge Activity: No restrictions Follow-up Provider: Lenore Pruitt MD Follow-up with PCP in: 1 week Time spent 45 minutes Russell Beckford MD Apr 15, 2017 16:24
== END 2017-04-15 13:15 | disposition home or self-care (01) | DRG 871 ==
LOC: SED 16:25 → PCC 20:40
PROVIDERS: ADMIT Hospitalist; ATTEND Hospitalist
PROC: 4A033R1 Measurement of Arterial Saturation, Peripheral, Percutaneous Approach (ICD-10-PCS; principal; 2017-04-11)
DX: A41.9 Sepsis, unspecified organism (principal); J96.21 Acute and chronic respiratory failure with hypoxia; J18.9 Pneumonia, unspecified organism; J44.1 Chronic obstructive pulmonary disease with (acute) exacerbation; L03.211 Cellulitis of face; I50.22 Chronic systolic (congestive) heart failure; I42.9 Cardiomyopathy, unspecified; J44.0 Chronic obstructive pulmonary disease with (acute) lower respiratory infection; Z99.81 Dependence on supplemental oxygen; H10.9 Unspecified conjunctivitis; Z95.810 Presence of automatic (implantable) cardiac defibrillator; I48.2 Chronic atrial fibrillation; I25.10 Atherosclerotic heart disease of native coronary artery without angina pectoris; I12.9 Hypertensive chronic kidney disease with stage 1 through stage 4 chronic kidney disease, or unspecified chronic kidney disease; N18.3 Chronic kidney disease, stage 3 (moderate); Z87.891 Personal history of nicotine dependence

== ENCOUNTER 2017-05-21 11:53 | Inpatient (IN) | payer MEDICARE ==
[2017-05-21] VITALS (13 sets, daily range): BP systolic 99–132; BP diastolic 54–89; PULSE 65–102; RESP 18–34; O2SAT 88–99
[~2017-05-21] VITALS: Ht 167.6 cm; Wt 91.0 kg
[~2017-05-21 11:53] MED LIST changes: +LINE600T2 PO
[2017-05-21] MEDS ORDERED: Albuterol-Ipratropium 3 mL Inhalation Solution ONE (12:05)
--- NOTE | 2017-05-21 12:12 | ED.REPORT ---
HPI-Dyspnea / Wheezing Date of Service May 21, 2017 ED Provider: Tye Harley MD Patient is an 82 year old male with a hx of CVA, CAD, CHF, Afib, HTN, COPD, kidney disease, and Pacemaker insertion who presents to the ED from urgent care for increasing SOB onset yesterday. He was seen at urgent care 6 days ago for leg and feet swelling. He was diagnosed with athlete's foot and cellulitis, started on abx, and told to return for follow up. He returned to today and his O2 sat was low, so they sent him to the ED. He has a chronic cough with yellow sputum, no acute changes. He uses 2L of O2 at home at baseline and has been using 2-3 nebs a day at home with no recent changes. He denies chest pain, rhinorrhea, fever, or any other symptoms. He was admitted to the hospital about a mo ago. He is not anticoagulated. Nursing Notes Stated Complaint: SOB Chief Complaint: Respiratory Distress Nursing Notes Reviewed: Yes Allergies: Coded Allergies: morphine (Verified Allergy, Severe, CONFUSED AND DISORIENTED, 05/21/17) Scheduled Aspirin (Aspirin) 81 Mg Tablet 81 MG PO DAILY Atorvastatin Calcium (Atorvastatin Calcium) 10 Mg Tablet 10 MG PO HS Calcium Carbonate (Calcium) 600 Mg Tablet 600 MG PO DAILY Fluticasone/Salmeterol (Advair 500-50 Diskus) 1 Each Disk.w.dev 1 PUFF IH BID Fluticasone/Salmeterol (Advair 250-50 Diskus) 60 Puff/Inh Disk 2 PUFF IH DAILY Furosemide (Lasix) 40 Mg Tablet 40 MG PO BID Guaifenesin (Mucinex) 600 Mg Tablet.er 600 MG PO BID Metoprolol Succinate ER (Metoprolol Succinate ER) 25 Mg Tab.er.24h 37.5 MG PO BID Montelukast (Singulair) 10 Mg Tablet 10 MG PO DAILY Multivitamin (Multivitamins) 1 Each Capsule 1 EACH PO DAILY Omeprazole (Omeprazole) 20 Mg Capsule.dr 20 MG PO BID Tiotropium [place] (Spiriva) 18 Mcg Cap.w.dev 18 MCG IH DAILY Scheduled PRN Albuterol HFA (Proair HFA) 8.5 Gm Hfa.aer.ad 2 PUFFS INHALATION Q4H PRN PRN For Shortness of Breath Albuterol Neb Soln (Albuterol Neb Soln) 2.5 Mg/3 Ml Vial.neb 2.5 MG INHALATION Q4H PRN PRN For Wheezing General Time Seen by MD: 12:00 Chief Complaint Shortness of breath Hx Obtained From: Patient, Daughter Arrived By: Walk-in Sudden in Onset?: Yes Onset Occurred: Yesterday Symptom Duration: Since onset Recent Healthcare: Recent doctor visit, Recent hospitalization Past Medical History Past Medical History Has historically complained about facial pain and redness for the past week. History of face infection before because he won't take his hearing aides out. Chronic atrial fibrillation. COPD. Pneumonia in the past. History of severe epistaxis secondary to bleeding, with intervention from ENT, and is now off anticoagulation. BPH. Hypertension. GERD. Osteoporosis. 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 Coronary artery disease, nonobstructive. CHF Reports: Stroke Past Surgical History PAST SURGICAL HISTORY: 1. Status post TURP. 2. Right knee arthroplasty. 3. Bilateral shoulder surgery. 4. Right elbow surgery with artificial joint. 5. Umbilical hernia repair in the past. 6. Single-chamber primary prevention ICD implantation. Reports: Cataract surgery Smoking History Former Smoker Social History Alcohol Use: Denies alcohol use Drug Use: Denies drug use Other Social History: Good social support Ambulatory Status Independent Review of Systems Constitutional: Denies: Fever Respiratory: Reports: Prod cough, yellow, Shortness of breath Cardiovascular: Denies: Chest pain Allergy / Immune: Denies: Rhinorrhea Complete sys rev & neg: except as marked. Physical Exam Initial Vital Signs Vital Signs (First) Date Time Temp Pulse Resp B/P Pulse Ox O2 Delivery O2 Flow Rate FiO2 05/21/17 12:16 36.6 89 34 122/76 99 Nasal Cannula 2 Initial VS: Reviewed, Vital signs abnormal Head / Eyes: Atraumatic, Normocephalic Skin: Warm, Dry Neurologic: Alert, Oriented, Nonfocal Psychiatric: Mood/affect normal, Behavior normal, Normal thought content General/Constitutional: Awake, Alert Distress / Hydration: Positive: Distress moderate Neck: Supple, Full range of motion Respiratory / Chest: Atraumatic coarse breath sounds bilat decreased air movement Cardiovascular: Heart rate NL, Regular rhythm holosystolic murmur at the L upper sternal border Abdomen: Atraumatic, Soft, Non-tender Lower Extremity / Pelvis / MS: No deformity Trace LE edema Ankle / Foot: Non-tender Erythema bilateral feet. Interpretation & Diagnostics Lab Results Interpretation Result Diagram: 05/21/17 1230 05/21/17 1230 Test 05/21/17 12:30 White Blood Count 7.8th/mm3 (3.8-10.1) Red Blood Count 4.23mil/mm3 (4.40-5.80) Hemoglobin 13.7g/dL (13.8-17.2) Hematocrit 44.5% (41.0-50.0) Mean Corpuscular Volume 105.2fL (81-100) Mean Corpuscular Hemoglobin 32.4pg (27.0-35.0) Mean Corpuscular Hemoglobin Concent 30.8% (32.0-37.0) Red Cell Distribution Width 16.8% (12.3-15.4) Platelet Count 221bil/L (150-400) Neutrophils (%) (Auto) 80.9% (40-74) Lymphocytes (%) (Auto) 7.7% (14-46) Monocytes (%) (Auto) 10.3% (4-12) Eosinophils (%) (Auto) 0.6% (0-5) Basophils (%) (Auto) 0.4% (0-3) Sodium Level 139mEq/L (134-144) Potassium Level 5.2mEq/L (3.5-5.2) Chloride Level 97mEq/L (97-108) Carbon Dioxide Level 28mmol/L (18-29) Blood Urea Nitrogen 31mg/dL (8-27) Creatinine 1.65mg/dL (0.76-1.27) Estimat Glomerular Filtration Rate 43mL/min (>59) Glucose Level 90mg/dL (60-99) Lactic Acid Level 2.1mmol/L (0.4-2.0) Calcium Level 9.7mg/dL (8.5-10.1) Total Bilirubin 0.5mg/dL (0.0-1.2) Aspartate Amino Transf (AST/SGOT) 22U/L (0-50) Alanine Aminotransferase (ALT/SGPT) 14U/L (0-44) Alkaline Phosphatase 103U/L (25-160) Troponin T 0.044ug/L (0.0-0.011) Pro-B-Type Natriuretic Peptide 8222pg/mL (0-486) Total Protein 7.3g/dL (6.4-8.4) Albumin 4.0g/dL (3.4-5.0) Procalcitonin 0.16ng/mL (0.00-0.08) ECG Interpretation ECG Interpretation: Afib poor quality Time: 12:12 Interpreted by: ED physician ECG Interpretation: afib rate [address], T changes Time: 12:45 Interpreted by: ED physician X-Ray Chest Interpretation Chest Xray Interpretation: IMPRESSION: 1. Persistent medial infrahilar opacities which likely correspond to chronic consolidation or atelectasis. Consider followup CT for further evaluation. Dictated by: Von Figueroa M.D. on 05/21/2017 at 12:53 Approved by: Von Figueroa M.D. on 05/21/2017 at 13:00 View: Portable, 1 view Interpretation / Wet Read by: Interpret - Radiologist Re-Eval/Medical Decision Med Decision/Clinical Course 82-year-old male history of CHF, COPD, CAD not on anticoagulants presenting with dyspnea times one day. He reports green sputum. On arrival he was in moderate respiratory distress requiring 5 L oxygen. He improved significantly to 2 L oxygen with steroids and nebulizer. Labs remarkable for elevated BNP 8000, lactic 2.1, elevated proBNP, mildly elevated troponins. Chest x-ray with infrahilar infiltrates possibly chronic. Patient also with some bilateral foot cellulitis. He was admitted for pneumonia and cellulitis recently. Patient will be admitted for dyspnea, CHF exacerbation, COPD exacerbation, cellulitis, elevated troponins. Cannot rule out pneumonia. Patient was given Rocephin and azithromycin to cover pneumonia as well as vancomycin to cover his cellulitis. He is admitted to hospitalist service. Re-Evaluation/Progress : Time of Eval: 13:25 )( Re-Eval Resp / Chest: No wheezing Re-Evaluation/Progress Note: Discussed plan for admission. Patient understands and agrees with plan. All questions addressed at this time. Consultation : Referral / Consult Name: Nadja Gonzales MD Consulted With: Hospitalist Call Returned at: 14:36 Signal Maintainer Helper: Will see patient, Agrees with eval, Agrees with plan, Accepts admit Note: Discussed pt's case. Accepts admit. Counseled Regarding: Diagnosis, Lab results, Need for admission Discharge & Departure Impression: Primary Impression: COPD exacerbation Additional Impressions: Elevated troponin Lower extremity cellulitis Laterality: unspecified laterality Qualified Code: L03.119 - Cellulitis of unspecified part of limb CHF exacerbation Congestive heart failure type: unspecified congestive heart failure type Qualified Code: I50.9 - Heart failure, unspecified Lactic acidosis Disposition: ADMITTED TO HOSPITAL Discharge Condition All VS Reviewed: Yes Condition: Stable Referrals: Lenore Pruitt MD (PCP) Scribe Attestation Portions of this note were transcribed by Deep Ross. I, Dr. Harley personally performed the history, physical exam and medical decision-making; I reviewed and confirmed the accuracy of the information in the transcribed note. copies to: Lenore Pruitt MD, Ben M MD May 21, 2017 12:11 DEEP ROSS May 21, 2017 12:20
[2017-05-21] MEDS ORDERED: Albuterol-Ipratropium 3 mL Inhalation Solution NEB ONE (12:20)
[2017-05-21] MEDS ORDERED: MethylprednisoLONE Sodium Succinate 62.5 mg/mL 2 mL Inj IVPUSH ONE (12:20)
[2017-05-21 12:47] LABS: BASOPHILS % (AUTO) 0.4 % (0-3); EOSINOPHILS % (AUTO) 0.6 % (0-5); MONOCYTES % (AUTO) 10.3 % (4-12); Mean Corpuscular Hemoglobin 32.4 pg (27.0-35.0); Mean Corpuscular Volume 105.2 fL (81-100); NEUTROPHILS % (AUTO) 80.9 % (40-74); Platelet Count 221 bil/L (150-400)
--- NOTE | 2017-05-21 13:02 | DRSVH ---
PROCEDURE: X-RAY CHEST ONE VIEW, PORTABLE ([id number]) INDICATIONS: dyspnea TECHNIQUE: One view of the chest was acquired. COMPARISON: [facility], CT, CT CHEST WO CON, 07/25/2016, 15:22. [facility], CR, XR CHEST 2VW, 07/26/2016, 13:36. [facility], CR, XR CHEST 1VW (PORTABLE), 04/11/2017, 16:41. [facility], CR, XR CHEST 1VW (PORTABLE), 04/12/2017, 4:42. FINDINGS: Surgical changes and devices: Left chest wall AICD appears stable in position. Lungs and pleura: No pleural effusions or pneumothorax. There are persistent medial infrahilar opac ities bilaterally which appear similar to the prior studies. Linear scarring is also demonstrated in the right lung base. Mediastinum: Mediastinal contours appear unchanged. Heart size is enlarged. Bones and chest wall: No suspicious bony lesions. Overlying soft tissues appear unremarkable. IMPRESSION: 1. Persistent medial infrahilar opacities which likely correspond to chronic consolidation or atelec tasis. Consider followup CT for further evaluation. Dictated by: Von Figueroa M.D. on 05/21/2017 at 12:53 Approved by: Von Figueroa M.D. on 05/21/2017 at 13:00
[2017-05-21 13:43] LABS: TROPONIN T 0.044 ug/L (0.0-0.011)
[2017-05-21] MEDS ORDERED: cefTRIAXone Inj 2,000 MG in Dextrose 5% Minibag Plus 50 ML IV ONE (13:55)
[2017-05-21] MEDS ORDERED: Furosemide 10 mg/mL 4 mL Inj IVPUSH ONE (13:55)
[2017-05-21] MEDS ORDERED: Azithromycin Inj 500 MG in Dextrose 5% 250 ML IV ONE (13:55)
[2017-05-21] MEDS ORDERED: Vancomycin Dose per Pharmacist XX ONE (14:05)
[2017-05-21] MEDS ORDERED: MULT1CAP33 PO (14:22)
[2017-05-21] MEDS ORDERED: GUAI600T2 PO (14:22)
[2017-05-21] MEDS ORDERED: TIOT18CA3 IH (14:22)
[2017-05-21] MEDS ORDERED: METO25TA99 PO (14:22)
[2017-05-21] MEDS ORDERED: ADV250INH IH (14:22)
[2017-05-21] MEDS ORDERED: ALBU8.5H2 INHALATION (14:22)
[2017-05-21] MEDS ORDERED: Vancomycin Inj 1,500 MG in 0.9% Sodium Chloride 500 ML IV ONE (14:30)
[2017-05-21] MEDS ORDERED: Alum-Mag Hydrox-Simeth 30 mL Suspension PO PRN ×2 (14:45→14:50)
[2017-05-21] MEDS ORDERED: Ondansetron 2 mg/mL 2 mL Inj IVPUSH PRN ×2 (14:45→14:50)
[2017-05-21] MEDS ORDERED: Polyethylene Glycol (PEG) 17 Gm Powder PO PRN (14:50)
[2017-05-21 15:33] LABS: APPEARANCE,URINE CLEAR (CLEAR,HAZY); COLOR,URINE STRAW (YELLOW); OCCULT BLOOD,URINE NEGATIVE (NEGATIVE); UROBILINOGEN,URINE NORMAL (NORMAL)
[2017-05-21] MEDS ORDERED: Furosemide 10 mg/mL 2 mL Inj IVPUSH ONE (16:35)
--- NOTE | 2017-05-21 17:08 | PCM.HPMED ---
Subjective Date of Service May 21, 2017 Primary Provider: Admitting Physician: Nadja Gonzales MD Primary Care Physician: Lenore Pruitt MD Attending Physician: Nadja Gonzales MD Chief Complaint: Shortness of breath History of Present Illness: 82-year-old male with history of CAD, atrial fibrillation not on anticoagulation due to severe epistaxis, CHF with EF of 30%, COPD, stage III CKD , and pacemaker present to the emergency department due to increasing shortness of breath and lower extremity edema without chest pain that began yesterday morning. Patient seems to be symptoms of been around for about a week but acutely got worse over last 48 hours. The patient endorses cough with yellow sputum, trouble catching his breath, but no wheezing. Patient denies chest pain , abdominal pain, fever, sinus congestion, or nausea/vomiting. Patient has not routinely been on prednisone but states he is compliant with his medications including maximum strength Advair, Spiriva, and Lasix 40 mg twice a day. Patient's edema acutely worsened yesterday but is improved a little bit by the time he is seen today. In the emergency room this was given 40 of Lasix IV, blood cultures were obtained, and patient was placed on oxygen and given a breathing treatment. Patient was also given 125 mg of Solu-Medrol IV. Chest x-ray showed a persistent medial infrahilar opacity which seems to been there from previous radiographs. Patient does not use oxygen at home Last PFTs were done a couple months ago in [place] with Dr. Szymanski Review of Systems: Complete review of systems performed; pertinent positives and negatives per history of present illness, all other systems reviewed and are negative Allergies Coded Allergies: morphine (Verified Allergy, Severe, CONFUSED AND DISORIENTED, 05/21/17) Home Medications Aspirin (Aspirin) 81 Mg Tablet 81 MG PO DAILY Atorvastatin Calcium (Atorvastatin Calcium) 10 Mg Tablet 10 MG PO HS Calcium Carbonate (Calcium) 600 Mg Tablet 600 MG PO DAILY Fluticasone/Salmeterol (Advair 500-50 Diskus) 1 Each Disk.w.dev 1 PUFF IH BID Fluticasone/Salmeterol (Advair 250-50 Diskus) 60 Puff/Inh Disk 2 PUFF IH DAILY Furosemide (Lasix) 40 Mg Tablet 40 MG PO BID Guaifenesin (Mucinex) 600 Mg Tablet.er 600 MG PO BID Metoprolol Succinate ER (Metoprolol Succinate ER) 25 Mg Tab.er.24h 37.5 MG PO BID Montelukast (Singulair) 10 Mg Tablet 10 MG PO DAILY Multivitamin (Multivitamins) 1 Each Capsule 1 EACH PO DAILY Omeprazole (Omeprazole) 20 Mg Capsule.dr 20 MG PO BID Tiotropium [place] (Spiriva) 18 Mcg Cap.w.dev 18 MCG IH DAILY Albuterol HFA (Proair HFA) 8.5 Gm Hfa.aer.ad 2 PUFFS INHALATION Q4H PRN PRN For Shortness of Breath Albuterol Neb Soln (Albuterol Neb Soln) 2.5 Mg/3 Ml Vial.neb 2.5 MG INHALATION Q4H PRN PRN For Wheezing PMH Chronic atrial fibrillation COPD History of pneumonia History of severe epistaxis due to anticoagulation BPH Hypertension GERD Osteoporosis 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 Status post TURP. 2. Right knee arthroplasty. 3. Bilateral shoulder surgery. 4. Right elbow surgery with artificial joint. 5. Umbilical hernia repair in the past. 6. Single-chamber primary prevention ICD implantation. Reports: Cataract surgery Family History Mother and father both of complications of COPD Social History Hx Alcohol Use: No Hx Substance Use: No Hx Tobacco Use: Yes (quit in 1970s) Smoking Status: Former Smoker (30 pack years) Exam Vital Signs Vital Sign - Last Date Time Temp Pulse Resp B/P Pulse Ox O2 Delivery O2 Flow Rate FiO2 05/21/17 13:10 102 25 132/84 99 Nasal Cannula 2 05/21/17 12:16 36.6 Exam General: Pleasant male in mild to moderate distress HEENT: PERRLA, EOMI, nonicteric, membranes moist Lymph: No lymphadenopathy Cardio: irregular Respiratory: CTA bilaterally, mild wheezes with course and distant breath sounds Abdomen: Soft, positive bowel sounds, nontender, nondistended Extremities: pitting edema of lower extremities; diffuse fungal skin infection Psych: Appropriate mood and affect Neuro: CN II through XII grossly intact, sensation intact throughout Skin: Patient's feet show sloughing of the skin up to the ankle, and onychomycosis Lab and Diagnostics Result Diagram: 05/21/17 1230 05/21/17 1230 X-Rays, CTs and MRIs Chest x-ray 1. Persistent medial infrahilar opacities which likely correspond to chronic consolidation or atelectasis. Consider followup CT for further evaluation. Dictated by: Von Figueroa M.D. on 05/21/2017 at 12:53 Assessment & Plan 82-year-old male who presents with 2 days of shortness of breath that came on acutely with increased lower extremity edema, increased cough and sputum production, and without fever or chills Acute hypoxic respiratory failure; present medicines; ongoing -Multifactorial: Likely component of CHF, COPD, and possible pulmonary embolism , as well as perihilar mass -ABG ordered -Maintain O2 sats 88-92 -Patient be admitted to [facility] -Patient is not on home O2 Sepsis with possible pulmonary source; present admission; ongoing -Pulse and respiratory rate with mild elevation lactic acid; patient does not appear toxic or septic -Patient started on ceftriaxone, azithromycin, and vancomycin; will hold Vanco -MRSA screen -Trend lactate Possible pulmonary embolism; present on admission; ongoing -Cannot confirm due to chronic kidney disease, and VQ scan less specific due to likely ongoing COPD and CHF exacerbation -D-dimer ordered and pending -If positive will start heparin drip as CKD may preclude Lovenox use Possible CHF exacerbation with elevated troponin; present on admission; ongoing -Patient has been more lethargic, and complains of increased edema -States he is compliant with his medications including Lasix, metoprolol -Lasix 80 mg IV daily; received 40 in the emergency department, given another 20 tonight -Continue metoprolol -CHF clinic on discharge -We will trend troponin although this is almost assuredly due to CKD COPD exacerbation; presence on admission; ongoing -Patient states is compliant with maximum therapy outpatient -Mild wheezes on exam, coarse breath sounds -Duo nebs every 4 while awake -Already given 125 mg Solu-Medrol IV -40 mg Solu-Medrol IV daily -Respiratory PCR Possible CAP; present on admission; ongoing -Patient presents with criteria for sepsis, does not appear overtly septic -Multiple etiologies for respiratory compromise -Continue antibiotics for the present time -Procalcitonin and sputum culture -Blood cultures already obtained Persistent perihilar mass; present on admission; ongoing -Chest x-ray again revealed perihilar mass that was seen on previous film 6 months ago -CT noncontrast ordered due to CKD Chronic kidney disease stage IIIB with elevated troponin -Avoid nephrotoxic medications -We will diuresis today -Trend troponin although looks like he is at baseline -Baseline creatinine is around 1.65 Atrial fibrillation not on anticoagulation -Patient has history of severe epistaxis on anticoagulation CAD -Continue aspirin, atorvastatin Disposition: Patient is being admitted to inpatient status with expected length of stay greater than two midnights due to to severity of presentation, duration of treatment, and risks of adverse events disposition Full code Pain Evaluation: Adequate Pain Control VTE Prophylaxis: Sub-Q Heparin (Unfractionated) Resuscitation Status: CPR: Attempt Resuscitation Sergio Carlton DO May 21, 2017 14:58
--- NOTE | 2017-05-21 17:11 | ABG ---
DateTimeAnalyzed 17:02:52 -_ pH ____7.432 - 7.350 7.450 pCO2 ___49.2__ -mmHg 35.0 45.0 pO2 ___57.3__ -mmHg 69.0 116 HCO3- ___32.8__ -mmol/L 22.0 26.0 ABE ____7.6__ -mmol/L tHb ___13.3__ -g/dL O2Hb ___89.4__ -% COHb ____2.6__ -% 1.5 MetHb ____0.0__ -% sO2 ___91.4__ -% FIO2 ___21.0__ -% Drawn By btl - Date/Time Notified____ 17:11:00 -_ Liter_Flow ____2.00_ -L/min Oxygen Device 1 __CANNULA - Notified By btl - Notified Whom ___Dr. Carlton - K+ ____4.7__ -mmol/L tO2 ___16.7__ -Vol% Russell test _Positive -
--- NOTE | 2017-05-21 17:17 | NUR ---
Admission Admit to room 3006 from ER via [facility]. A&O, ABX infusing, 2L O2 via NH. Admission assessments completed by Admission and Primary RN. Oriented to room and call light. Wound Consult placed for bilateral LE cellulitis. Reporting no pain. ABGs resulted and SCRATCHER placed with goal sats low 90s, pt using intermittent home O2. Frequent rounding in place and care plan updated on board.
--- NOTE | 2017-05-21 17:44 | DRSVH ---
PROCEDURE: CT CHEST WITHOUT CONTRAST ([id number]) INDICATIONS: Perihilar opacities on x-ray. TECHNIQUE: Noncontrast 5 mm thick sections acquired from the pulmonary apices to the posterior costophrenic angl es. 7 mm thick coronal and sagittal MIP reformats were then acquired. For radiation dose reduction, the following was used: automated exposure control, adjustment of mA and/or kV according to patient size. COMPARISON: [facility], CR, XR CHEST 1VW (PORTABLE), 05/21/2017, 12:20. [facility], CT, CT CHEST WO CON, 07/25/2016, 15:22. FINDINGS: Image quality: Excellent. Lungs and pleura: There is mild medial atelectasis in the lower lobes, decreased compared to the nabeel or CT. Moderate to severe centrilobular emphysematous changes are demonstrated bilaterally. Mild li near scarring or atelectasis is also demonstrated in the inferior right middle lobe and left lingula. No suspicious mass lesions. No pleural effusions or pneumothorax. Central and peripheral airways are patent and normal in caliber. Mediastinum: Heart size is enlarged. No pericardial effusion. There is prominent coronary arterial vascular calcification. There is a left chest wall AICD with the lead extending into the right vent ricle. No mediastinal adenopathy by size criteria. Thoracic aorta and central pulmonary arteries ar e normal in size. There is tortuosity of the thoracic aorta. Esophagus is normal in caliber. No hi atal hernia. Bones and chest wall: No suspicious bony lesions. There are 4 mild anterior compression deformities redemonstrated within the mid thoracic spine. No retropulsed bony fragments. No axillary or suprac lavicular adenopathy by size criteria. Thyroid gland is partially visualized without suspicious nodu les identified. Abdomen: Visualized upper abdominal solid organs and bowel loops appear normal in the absence of con trast. IMPRESSION: 1. Mild medial bibasilar atelectasis, decreased from the prior CT study. No discrete mass lesion id entified. 2. Moderate to severe centrilobular emphysematous changes. 3. Cardiomegaly. Dictated by: Von Figueroa M.D. on 05/21/2017 at 17:29 Approved by: Von Figueroa M.D. on 05/21/2017 at 17:42
--- NOTE | 2017-05-21 19:15 | NUR ---
BiPAP Activity resulting in prolonged pursed lipped breathing. Family reports BiPAP usage at home and unable to bring in. Provider and RT notified. Provider requesting transfer to [facility] for increased BiPAP needs. Family notified of room change for needs and Carmen notified of transfer to room 2029. Report called to Ray Gregg RN.
--- NOTE | 2017-05-21 20:14 | NUR ---
Transfer Pt transferred to [facility] room 2030 at approx. 1999; report given to Ray Rees RN by daytime RN. Pt transferred by wheelchair, all belongings transferred with pt.
[2017-05-21] MEDS: Albuterol-Ipratropium 3 mL Inhalation Solution NEB SCH (20:16)
[2017-05-21] MEDS ORDERED: Heparin 5,000 Unit/mL Inj IVPUSH PRN (20:20)
[2017-05-21] MEDS ORDERED: Heparin 25K Unit/500mL 0.45 NS 25,000 UNIT in IV Premix 1 EACH IV SCH (20:20)
[2017-05-21] MEDS: guaiFENesin 600 mg ER12 Tablet PO SCH (22:07)
[2017-05-21] MEDS: MeTOProlol XL 25 mg ER24 Tablet PO SCH (22:07)
[2017-05-22] VITALS (11 sets, daily range): BP systolic 105–136; BP diastolic 74–84; PULSE 73–109; RESP 20–22; O2SAT 90–96
[2017-05-22] MEDS: Heparin 5,000 Unit/mL Inj SUBQ SCH ×3 (00:30→16:30)
--- NOTE | 2017-05-22 01:42 | NUR ---
Received pt from [facility]/Tele/BiPap Received pt from [facility] @ 1999 , A&O x3 , RT placed on C-Pap, pt was unable to maintain saturation, RT stated he has central apnea, increased setting to BI-pap w 4 liter O2 bleed in. Sats stabilized, pt is sleeping , no C/O pain . Saline locked , A&O x 3 using call light appropriately. 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 Feet look reddened and peeling. Telemetry A-Fib 70's Addendum: 05/22/17 at 0530 by SHERITA CHERRY RN Heparin: DVT/PE Gtt @ 18 u/Kg/hr Initial PTT heparin 29.9. D-Dimer positive, Doppler negative for DVT
[2017-05-22] MEDS: Albuterol-Ipratropium 3 mL Inhalation Solution NEB SCH ×4 (07:47→21:00)
[2017-05-22] MEDS ORDERED: Azithromycin Inj 500 MG in Dextrose 5% w/Vial Mate 250 ML IV SCH (08:30)
[2017-05-22] MEDS ORDERED: Furosemide 10 mg/mL 10 mL Inj IVPUSH SCH (08:30)
[2017-05-22 09:02] LABS: Mean Corpuscular Hemoglobin 32.1 pg (27.0-35.0); Mean Corpuscular Volume 103.6 fL (81-100)
[2017-05-22] MEDS: MethylprednisoLONE Sodium Succinate 40 mg/mL Inj IVPUSH SCH (09:07)
[2017-05-22] MEDS: guaiFENesin 600 mg ER12 Tablet PO SCH ×2 (09:07→21:59)
[2017-05-22] MEDS: MeTOProlol XL 25 mg ER24 Tablet PO SCH ×2 (09:07→21:59)
[2017-05-22] MEDS ORDERED: Furosemide 10 mg/mL 4 mL Inj IVPUSH SCH (09:21)
--- NOTE | 2017-05-22 09:59 | DRSVH ---
PROCEDURE: US VENOUS LEG DUPLEX BILATERAL INDICATIONS: DVT TECHNIQUE: Real-time imaging, as well as color and pulse Doppler interrogation, were performed of the deep veins of both legs from the inguinal ligament to the popliteal fossa. COMPARISON: None. FINDINGS: The deep veins are normally compressible, and free of intraluminal thrombus. Color and pu lse Doppler demonstrate normal phasic intravascular flow. There is normal augmentation response to d istal compression maneuver. IMPRESSION: No DVT over either lower extremity. Dictated by: Quang Martinez M.D. on 05/22/2017 at 9:56 Approved by: Quang Martinez M.D. on 05/22/2017 at 9:57
[2017-05-22 10:10] LABS: Vitamin B12 775 pg/mL (211-946)
[2017-05-22] MEDS: Furosemide 10 mg/mL 4 mL Inj IVPUSH SCH (11:03)
--- NOTE | 2017-05-22 11:04 | NUR ---
Inpatient Wound Nurse Patient seen for cellulitis of BLE. Patient stated that a family member for recipe for foot soak solution that would cure Athlete's Foot, which he used multiple times with a basin he has in his home. "It's old, I think it's not very clean, now that I think about it," referring to basin. Patient stated that drainage was excessive prior to admit. Patient's BLE toes are stained blue and green, related to Listerine and other ingredients. No open areas found between toes. Thickened fungus noted to almost every nail and plantar surfaces and toes were scaley. Multiple open areas all <1 cm L x <1 cm W, glossy pink wound beds, very minimal drainage. Multiple dark red, crusted areas also noted. All areas with erythema and tender to touch. All areas were cleased with wound cleansing spray and blotted dry. Periwounds were swabbed with skin prep. Open areas were covered with Xeroform and Mepilex sheet foam. Then socks were donned to hold dressings in place. This certified foot care nurse educated patient that foot soaking is contraindicated in the home setting unless sterile basin is used and solution is approved by MD. Patient was instructed that any fissures, even superficial, are routes of entry for bacteria that are activated with warm, wet environments such as that used for foot soaks. Patient instructed that he is likely not a candidate for oral fungal therapy and that he should manage fungus with nail sanding by [facility] or podiatry, who will also reduce skin thickening and callouses. If this was not possible, he was encouraged to be seen at [facility] once cellulitis was resolved. Patient stated understanding of information provided. Nursing to change dressings every other day and PRN.
[2017-05-22] MEDS ORDERED: cefTRIAXone Inj 2,000 MG in Dextrose 5% Minibag Plus 50 ML IV SCH (14:30)
--- NOTE | 2017-05-22 14:37 | PCM.PNMED ---
Subjective Date of Service May 22, 2017 Subjective Assessment: Patient was sitting upright in a chair on physical exam. He states that he is feeling better however continues to note increased swelling of his legs and feet. Events Overnight: No acute events overnight. ROS: Denies fever/chills, nausea/vomiting, headache, weakness, abdominal pain, chest pain, shortness of breath. Exam Vital Signs Vital Sign - Last Date Time Temp Pulse Resp B/P Pulse Ox O2 Delivery O2 Flow Rate FiO2 05/22/17 12:29 37.2 107 22 128/84 94 Nasal Cannula 2.50 Intake and Output 05/21/17 05/21/17 05/22/17 Cumulative From/Thru 15:00 23:00 07:00 05/21/17 12:16 - 05/22/17 06:20 Intake Total 150 ml 770 ml 920 ml Output Total 600 ml 1150 ml 1750 ml Balance -450 ml -380 ml -830 ml Intake Oral 150 ml 200 ml 350 ml IV Total 570 ml 570 ml Output Urine Total 600 ml 1150 ml 1750 ml # Voids 1 4 5 # Bowel Movements 3 3 Exam General: No acute distress, well-developed, well-nourished HEENT: Normocephalic, atraumatic. External ears without defect. Pupils equal, round, and reactive to light and accommodation. Anicteric sclerae, moist conjunctivae. Cardiovascular: Rhythm irregularly irregular with no murmurs, rubs, or gallops appreciated Pulmonary: Overall decreased breath sounds, mild rhonchi over the lower lung bases, mild expiratory wheezes. Normal respiratory effort with no use of accessory muscles. Abdomen: Bowel tones present. Soft, nontender, nondistended. Extremities: No clubbing, cyanosis, 2+ pitting edema in the lower limbs bilaterally Skin: Normal temperature, turgor, and texture; hemosiderin deposition in the lower legs bilaterally, however no ulcers, or subcutaneous nodules appreciated. Neurological: Cranial nerves grossly intact. Reflexes, coordination, and sensory function within normal limits. Normal muscle strength, tone, and bulk. Psychiatric: Normal mood and affect. Alert and oriented to person, place, and time IVs and Medications IV Fluids 800 mL NS delivered with medications. Medications Reviewed: Medications were reviewed in detail Medications High-risk medications include: IV heparin Lab and Diagnostics Item Value Date Time Red Blood Count 4.21 mil/mm3 L 05/22/17 0850 Mean Corpuscular Volume 103.6 fL H 05/22/17 0850 Mean Corpuscular Hemoglobin 32.1 pg 05/22/17 0850 Mean Corpuscular Hemoglobin Concent 31.0 % L 05/22/17 0850 Red Cell Distribution Width 16.8 % H 05/22/17 0850 Estimat Glomerular Filtration Rate 44 mL/min 05/22/17 0850 Calcium Level 9.1 mg/dL 05/22/17 0850 Total Bilirubin 0.4 mg/dL 05/22/17 0850 Aspartate Amino Transf (AST/SGOT) 20 U/L 05/22/17 0850 Alanine Aminotransferase (ALT/SGPT) 13 U/L 05/22/17 0850 Alkaline Phosphatase 99 U/L 05/22/17 0850 Total Protein 7.1 g/dL 05/22/17 0850 Albumin 3.7 g/dL 05/22/17 0850 Vitamin B12 Level 775 pg/mL 05/21/17 1707 Folate > 19.9 ng/mL 05/21/17 1707 Procalcitonin 0.17 ng/mL H 05/21/17 1710 Result Diagram: 05/22/17 0850 05/22/17 0850 Microbiology MRSA positive by PCR Pneumonia PCR negative Sputum screen negative, culture shows normal daquan Blood culture no growth after 24 hours X-Rays, CTs and MRIs Chest x-ray 1. Persistent medial infrahilar opacities which likely correspond to chronic consolidation or atelectasis. Consider followup CT for further evaluation. Dictated by: Von Figueroa M.D. on 05/21/2017 at 12:53 Additional Diagnostics [facility] CONSTANTINE WANG 1935 Male DateTimeAnalyzed 17:02:52 -_ pH ____7.432 - 7.350 7.450 pCO2 ___49.2__ -mmHg 35.0 45.0 pO2 ___57.3__ -mmHg 69.0 116 HCO3- ___32.8__ -mmol/L 22.0 26.0 ABE ____7.6__ -mmol/L tHb ___13.3__ -g/dL O2Hb ___89.4__ -% COHb ____2.6__ -% 1.5 MetHb ____0.0__ -% sO2 ___91.4__ -% FIO2 ___21.0__ -% Drawn By btl - Date/Time Notified____ 17:11:00 -_ Liter_Flow ____2.00_ -L/min Oxygen Device 1 __CANNULA - Notified By btl - Notified Whom ___. Brandt - K+ ____4.7__ -mmol/L tO2 ___16.7__ -Vol% Russell test _Positive - US VENOUS LEG DUPLEX BILATERAL IMPRESSION: No DVT over either lower extremity. Dictated by: Quang Martinez M.D. on 05/22/2017 at 9:56 Approved by: Quang Martinez M.D. on 05/22/2017 at 9:57 Assessment & Plan 82-year-old male who presents with 2 days of shortness of breath that came on acutely with increased lower extremity edema, increased cough and sputum production, and without fever or chills Acute hypoxic respiratory failure; present on admission; active -Multifactorial: Likely component of CHF, COPD -ABG ordered - 05/22 patient on 4 L of oxygen with sats 95%. Decrease oxygen and maintain O2 sats 88-92% - Home O2 2 Liters Sepsis with possible pulmonary source; present on admission; improving -Pulse and respiratory rate with mild elevation lactic acid; patient does not appear toxic or septic -Patient started on ceftriaxone, azithromycin, and vancomycin on 05/21 - As patient continues to have no symptoms of pneumonia, and no evidence on CT antibiotics were discontinued, consider restart if patient becomes symptomatic. - MRSA screen positive start bactroban in the nares Possible pulmonary embolism; present on admission; ongoing - Cannot confirm due to chronic kidney disease, and VQ scan less specific due to likely ongoing COPD and CHF exacerbation - D-dimer elevated at 1.27 - Bilateral lower leg ultrasound negative for DVT - Heparin drip DC'd CHF exacerbation with elevated troponin; present on admission; active -Patient has been more lethargic, and complains of increased edema -States he is compliant with his medications including Lasix, metoprolol -Lasix 80 mg IV daily -Continue metoprolol -CHF clinic on discharge - Troponins downtrending COPD exacerbation; presence on admission; resolved -Patient states he's compliant with maximum therapy outpatient -Duo nebs as needed for shortness of breath -Already given 125 mg Solu-Medrol IV (05/21/17) - Respiratory PCR negative - Patient is very close to baseline oxygen use. Increased shortness of breath appears to be due to CHF exacerbation as opposed to COPD exacerbation. - If patient begins to have symptoms without steroids on board we may restart at that point. Possible CAP; present on admission; unlikely -Patient initially presented with criteria for sepsis, does not appear overtly septic -Multiple etiologies for respiratory compromise -Antibiotics DC'd were resumed based on clinical features. -Procalcitonin minimally elevated and sputum culture negative -Blood cultures obtained 24 hours no growth Persistent perihilar mass; present on admission; ongoing -Chest x-ray again revealed perihilar mass that was seen on previous film 6 months ago -CT noncontrast ordered due to CKD Chronic kidney disease stage IIIB with elevated troponin -Avoid nephrotoxic medications -We will diuresis today -Downtrending troponin -Baseline creatinine is around 1.65 Atrial fibrillation not on anticoagulation -Patient has history of severe epistaxis on anticoagulation CAD -Continue aspirin, atorvastatin Disposition: Patient will likely remain in the hospital 1-2 days for fluid diuresis and monitoring. Full code VTE Prophylaxis: Sub-Q Heparin (Unfractionated) VTE Mechanical Devices: Intermittant Pneumatic CD Resuscitation Status: CPR: Attempt Resuscitation Attending Statement The patient was seen and examined together with Dr. Ruiz on 05/22/17 and I have added additional information to the note above. Gabriel Ruiz DO May 22, 2017 14:37 Joy Rodgers DO May 22, 2017 18:24
--- NOTE | 2017-05-22 19:49 | NUR ---
Activity/Respiratory pt able to stand and transfer to BSC with SBA however pt slightly unsteady on his feet. Able to wean O2 down to 2L while pt awake however while pt sleeping in bed desating to high 70s low 80s, noted pt was mouth breathing. Able to keep pt SpO2 between 88-92% with oxymask at 3L. Report given to merlyn PAGAN
[2017-05-23] VITALS (8 sets, daily range): BP systolic 122–123; BP diastolic 81–82; PULSE 74–116; RESP 16–20; O2SAT 85–96
--- NOTE | 2017-05-23 00:29 | NUR ---
V-Pap/SL RT set up V-Pap for HS, pt comfortable , able to self transfer from chair to bed. SL x 2 , 2 L bleed in on C-Pap. denies pain, A&O x3 using call light appropriately. Tele , A-Fib 80's/
[2017-05-23] MEDS: Heparin 5,000 Unit/mL Inj SUBQ SCH ×2 (01:22→08:12)
[2017-05-23 05:09] LABS: BASOPHILS % (AUTO) 0 % (0-3); EOSINOPHILS % (AUTO) 0.1 % (0-5); MONOCYTES % (AUTO) 8.4 % (4-12); Mean Corpuscular Hemoglobin 32.3 pg (27.0-35.0); Mean Corpuscular Volume 102.7 fL (81-100); NEUTROPHILS % (AUTO) 83.6 % (40-74); Platelet Count 232 bil/L (150-400)
[2017-05-23] MEDS ORDERED: 0.9% Sodium Chloride 250 ML ONE (08:03)
[2017-05-23] MEDS: Albuterol-Ipratropium 3 mL Inhalation Solution NEB SCH ×3 (08:07→15:43)
[2017-05-23] MEDS: MethylprednisoLONE Sodium Succinate 40 mg/mL Inj IVPUSH SCH (08:11)
[2017-05-23] MEDS: Furosemide 10 mg/mL 4 mL Inj IVPUSH SCH (08:11)
[2017-05-23] MEDS: MeTOProlol XL 25 mg ER24 Tablet PO SCH (08:12)
[2017-05-23] MEDS: guaiFENesin 600 mg ER12 Tablet PO SCH (08:12)
[2017-05-23] MEDS ORDERED: Furosemide 10 mg/mL 10 mL Inj IVPUSH SCH (08:30)
[2017-05-23] MEDS ORDERED: AZIT500T5 PO (13:19)
[2017-05-23] MEDS ORDERED: PRE20 PO (13:19)
--- NOTE | 2017-05-23 13:51 | NUR ---
Social Work-initial assessment/readiness for discharge: Data:See initial assessment. pt is a 82 y/o male who was admitted on 05/21/17 for COPD per H&P. Pt's insurance is [email or web address] and PCP is Lenore Pruitt MD. EMR reviewed. Pt is alert and oriented x3. Pt resides at home with his family in [place] where he remains independent with ADLs. Pt uses no DME at baseline, but has [facility] if needed. Pt has no HH or SNF history. Pt has no correction care insurance or VA benefits. SW discussed DPOA/ advanced directive, pt confirms he has completed this, SW encouraged a copy to be brought in. Pt uses a O2 and BIPAP through [employer]. SW provided pt with discharge planning checklist and encouraged pt to call with any questions. Phone number provided on white board in room. SW attempted to reach family with no answer. Pt's family to provide transport home. SW will continue to follow. Assessment:pt who is independent at baseline. Plan:Pt to discharge home when medically stable via POV. R/O HH services. SW will continue to follow. JULISA Zuniga Addendum: 05/23/17 at 1356 by ROXI ISAAC Amended: Links added.
--- NOTE | 2017-05-23 13:52 | PCM.DIMED ---
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 This study was negative for any evidence of thrombosis. The chest x-ray indicates that there is fluid in your lungs which is likely a result of your CHF exacerbation, however, COPD exacerbation cannot be ruled out. Chest CT scan shows some mild chronic areas of your lung that have collapsed this is likely due to your COPD. No evidence of pulmonary embolism was detected on any of the studies that we were able to obtain, however, this could not be entirely ruled out as we were unable to obtain a spiral CT of the lungs due to your kidney status. Diet Discharge Diet: Heart Healthy Activity Discharge Activity: No restrictions Call your provider Call your provider for: Fever or Chills, Shortness of breath, Bleeding, Chest pain, Vomitting, Excessive diarrhea, Weakness (unilateral) Patient Instructions Patient Instructions You came in with shortness of breath which appears to be related to your congestive heart failure and may also be related to a mild COPD exacerbation. Please take the medications as described above. We would like you to remain on 1 L of oxygen at home for the next 7 days. After this point use as needed. Follow-up plan We would also like you to follow-up with your primary care doctor, your motion designer, and the CHF clinic. The CHF clinic should be able to make an appointment with you within the next 48 hours. Please keep this appointment. Follow-up Provider: Fahad Clarke MD Follow-up with PCP in: 4 weeks Provider: Lenore Pruitt MD Follow-up in: 1 week CHF Clinic: 1 week Joy Rodgers DO 05/23/17 1640: Discharge Instructions Attending's Statement The patient was seen and examined together with Dr. Ruiz on 05/23/17 and I agree with the history, exam and plan as outlined in the note above. Gabriel Ruiz DO May 23, 2017 13:52 Joy Rodgers DO May 23, 2017 16:40
[2017-05-23] MEDS ORDERED: FURO-128 PO (13:57)
--- NOTE | 2017-05-23 14:18 | PCM.DC.MED ---
Discharge Summary Date of Service May 23, 2017 Dates of Hospitalization Date of Hospital Admission May 21, 2017 at 14:40 Date of Discharge: May 23, 2017 Providers: Admitting Physician: Nadja Gonzales MD Primary Care Physician: Lenore Pruitt MD Attending Physician: Joy Rodgers DO Diagnosis at Time of Discharge Diagnosis at Time of Discharge Acute hypoxic respiratory failure; present on admission; active Sepsis with possible pulmonary source; present on admission; improving Possible pulmonary embolism; present on admission; ongoing CHF exacerbation with elevated troponin; present on admission; active COPD exacerbation; presence on admission; resolved Possible CAP; present on admission; unlikely Persistent perihilar mass; present on admission; ongoing Chronic kidney disease stage IIIB with elevated troponin Atrial fibrillation not on anticoagulation CAD Consultations Cardio: Dr. Clarke Procedures XRay, CTs & MRIs Chest x-ray 1. Persistent medial infrahilar opacities which likely correspond to chronic consolidation or atelectasis. Consider followup CT for further evaluation. Dictated by: Von Figueroa M.D. on 05/21/2017 at 12:53 CT CHEST WITHOUT CONTRAST IMPRESSION: 1. Mild medial bibasilar atelectasis, decreased from the prior CT study. No discrete mass lesion identified. 2. Moderate to severe centrilobular emphysematous changes. 3. Cardiomegaly. Dictated by: Von Figueroa M.D. on 05/21/2017 at 17:29 Approved by: Von Figueroa M.D. on 05/21/2017 at 17:42 Other Diagnostics [facility] 17:02:52 pH 7.432 pCO2 49.2 pO2 57.3 HCO3 32.8 FIO2 21.0 US VENOUS LEG DUPLEX BILATERAL IMPRESSION: No DVT over either lower extremity. Dictated by: Quang Martinez M.D. on 05/22/2017 at 9:56 Approved by: Quang Martinez M.D. on 05/22/2017 at 9:57 Brief History 82-year-old male with history of CAD, atrial fibrillation not on anticoagulation due to severe epistaxis, CHF with EF of 30%, COPD, stage III CKD , and pacemaker present to the emergency department due to increasing shortness of breath and lower extremity edema without chest pain that began yesterday morning. Patient states his symptoms have been going on for about a week but acutely got worse 2 days prior to admission. The patient endorses cough with yellow sputum, trouble catching his breath, but no wheezing. Patient denies chest pain, abdominal pain, fever, sinus congestion, or nausea/vomiting. Patient has not routinely been on prednisone but states he is compliant with his medications including maximum strength Advair, Spiriva, and Lasix 40 mg twice a day. Patient's edema acutely worsened yesterday but is improved a little bit by the time he is seen today. While here in the hospital the patient was started on azithromycin 500 mg daily , prednisone 40 mg daily, and aggressively diuresed with 80 mg of Lasix IV and then decreased to 60 mg of Lasix IV. The patient seemed to respond and had 3 L diuresed during this admission and stated that his shortness of breath and lower extremity edema had improved significantly. The patient is being discharged home on 80 mg of Lasix and will continue his azithromycin and prednisone COPD exacerbation regimen. 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 Patient is being discharged home in stable condition Hospital Course 82-year-old male who presents with 2 days of shortness of breath that came on acutely with increased lower extremity edema, increased cough and sputum production, and without fever or chills Acute hypoxic respiratory failure; present on admission; active -Multifactorial: Likely component of CHF, COPD -ABG ordered - 05/22 patient on 4 L of oxygen with sats 95%. Decrease oxygen and maintain O2 sats 88-92% - Home O2 2 Liters Sepsis with possible pulmonary source; present on admission; improving -Pulse and respiratory rate with mild elevation lactic acid; patient does not appear toxic or septic -Patient started on ceftriaxone, azithromycin, and vancomycin on 05/21 - As patient continues to have no symptoms of pneumonia, and no evidence on CT antibiotics were discontinued, consider restart if patient becomes symptomatic. - MRSA screen positive start bactroban in the nares Possible pulmonary embolism; present on admission; ongoing - Cannot confirm due to chronic kidney disease, and VQ scan less specific due to likely ongoing COPD and CHF exacerbation - D-dimer elevated at 1.27 - Bilateral lower leg ultrasound negative for DVT - Heparin drip DC'd CHF exacerbation with elevated troponin; present on admission; active -Patient has been more lethargic, and complains of increased edema -States he is compliant with his medications including Lasix, metoprolol -Lasix 80 mg IV daily decreased to 60mg IV today (05/23/17) -Continue metoprolol -CHF clinic on discharge - Troponins downtrending COPD exacerbation; presence on admission; resolved -Patient states he's compliant with maximum therapy outpatient -Duo nebs as needed for shortness of breath -Already given 125 mg Solu-Medrol IV (05/21/17) - Respiratory PCR negative - Patient is very close to baseline oxygen use. Increased shortness of breath appears to be due to CHF exacerbation as opposed to COPD exacerbation. - If patient begins to have symptoms without steroids on board we may restart at that point. Possible CAP; present on admission; unlikely -Patient initially presented with criteria for sepsis, does not appear overtly septic -Multiple etiologies for respiratory compromise -Antibiotics DC'd were resumed based on clinical features. -Procalcitonin minimally elevated and sputum culture negative -Blood cultures obtained 24 hours no growth Persistent perihilar mass; present on admission; ongoing -Chest x-ray again revealed perihilar mass that was seen on previous film 6 months ago -CT noncontrast ordered due to CKD Chronic kidney disease stage IIIB with elevated troponin -Avoid nephrotoxic medications -We will diuresis today -Downtrending troponin -Baseline creatinine is around 1.65 Atrial fibrillation not on anticoagulation -Patient has history of severe epistaxis on anticoagulation CAD -Continue aspirin, atorvastatin Full code Exam Vital Signs (Last) Date Time Temp Pulse Resp B/P Pulse Ox O2 Delivery O2 Flow Rate FiO2 05/23/17 11:30 84 20 85 Room Air 05/23/17 08:00 1.00 05/23/17 07:52 36.8 123/81 Exam General: No acute distress, well-developed, well-nourished HEENT: Normocephalic, atraumatic. External ears without defect. Pupils equal, round, and reactive to light and accommodation. Anicteric sclerae, moist conjunctivae. Cardiovascular: Rhythm irregularly irregular with no murmurs, rubs, or gallops appreciated Pulmonary: Overall decreased breath sounds, improved on the right, mild rhonchi over the lower lung bases, mild expiratory wheezes. Normal respiratory effort with no use of accessory muscles. Abdomen: Bowel tones present. Soft, nontender, nondistended. Extremities: No clubbing, cyanosis, 2+ pitting edema in the lower limbs bilaterally Skin: Normal temperature, turgor, and texture; hemosiderin deposition in the lower legs bilaterally, however no ulcers, or subcutaneous nodules appreciated. Neurological: Cranial nerves grossly intact. Reflexes, coordination, and sensory function within normal limits. Normal muscle strength, tone, and bulk. Psychiatric: Normal mood and affect. Alert and oriented to person, place, and time Test 05/21/17 12:30 05/21/17 15:09 05/21/17 17:07 05/21/17 17:10 Pro-B-Type Natriuretic Peptide 8222pg/mL (0-486) Urine Color Straw (YELLOW) Urine Appearance Clear (CLEAR,HAZY) Urine pH 7.0 (5.0-8.0) Urine Specific [place] 1.010 (1.003-1.035) Urine Protein Negativemg/dL (NEG,TRACE) Urine Glucose (UA) Negativemg/dL (NEGATIVE) Urine Ketones Negativemg/dL (NEGATIVE) Urine Occult Blood Negative (NEGATIVE) Urine Nitrite Negative (NEGATIVE) Urine Bilirubin Negative (NEGATIVE) Urine Urobilinogen Normalmg/dL (NORMAL) Urine Leukocyte Esterase Negative (NEGATIVE) Urine RBC 0-2/hpf (0-2) Urine WBC 0-5/hpf (0-5) Urine Epithelial Cells Occasional/hpf (NONE-MOD) Urine Crystals None seen (NONE SEEN) Urine Bacteria None/hpf (NONE-FEW) Urine Hyaline Casts None/lpf (NONE) Urine Granular Casts None seen (NONE SEEN) Urine Waxy Casts None seen (NONE SEEN) Urine Red Blood Cell Casts None seen (NONE SEEN) Urine White Blood Cell Casts None seen (NONE SEEN) Urine Mucus None seen (None Seen) Urine Trichomonas None seen (NONE SEEN) Urine Yeast None (NONE SEEN) Urinalysis Comment None Urine Culture Reflexed Not indicated D-Dimer 1.27mg/L FEU (<0.50) Lactic Acid Level 2.2mmol/L (0.4-2.0) Vitamin B12 Level 775pg/mL (211-946) Folate > 19.9ng/mL (>3.0) Procalcitonin 0.17ng/mL (0.00-0.08) Test 05/22/17 00:40 05/22/17 09:35 05/23/17 04:45 Troponin T 0.022ug/L (0.0-0.011) Activated Partial Thromboplast Time 79.1sec (22.8-33.0) White Blood Count 8.8th/mm3 (3.8-10.1) Red Blood Count 4.06mil/mm3 (4.40-5.80) Hemoglobin 13.1g/dL (13.8-17.2) Hematocrit 41.7% (41.0-50.0) Mean Corpuscular Volume 102.7fL (81-100) Mean Corpuscular Hemoglobin 32.3pg (27.0-35.0) Mean Corpuscular Hemoglobin Concent 31.4% (32.0-37.0) Red Cell Distribution Width 16.8% (12.3-15.4) Platelet Count 232bil/L (150-400) Neutrophils (%) (Auto) 83.6% (40-74) Lymphocytes (%) (Auto) 7.8% (14-46) Monocytes (%) (Auto) 8.4% (4-12) Eosinophils (%) (Auto) 0.1% (0-5) Basophils (%) (Auto) 0% (0-3) Sodium Level 141mEq/L (134-144) Potassium Level 4.7mEq/L (3.5-5.2) Chloride Level 101mEq/L (97-108) Carbon Dioxide Level 28mmol/L (18-29) Blood Urea Nitrogen 43mg/dL (8-27) Creatinine 1.66mg/dL (0.76-1.27) Estimat Glomerular Filtration Rate 42mL/min (>59) Glucose Level 101mg/dL (60-99) Calcium Level 9.0mg/dL (8.5-10.1) Total Bilirubin 0.3mg/dL (0.0-1.2) Aspartate Amino Transf (AST/SGOT) 20U/L (0-50) Alanine Aminotransferase (ALT/SGPT) 13U/L (0-44) Alkaline Phosphatase 87U/L (25-160) Total Protein 6.4g/dL (6.4-8.4) Albumin 3.5g/dL (3.4-5.0) Microbiology Results MRSA positive by PCR Pneumonia PCR negative Sputum screen negative, culture shows normal daquan Blood culture no growth after 24 hours Discharge Medications Discharge Medications Aspirin (Aspirin) 81 Mg Tablet 81 MG PO DAILY (Reported) Atorvastatin Calcium (Atorvastatin Calcium) 10 Mg Tablet 10 MG PO HS Prescribed by: SETH BROWN DO Azithromycin (Azithromycin) 500 Mg Tablet 500 MG PO DAILY Prescribed by: CHARLOTTE BENZ DO Calcium Carbonate (Calcium) 600 Mg Tablet 600 MG PO DAILY (Reported) Fluticasone/Salmeterol (Advair 500-50 Diskus) 1 Each Disk.w.dev 1 PUFF IH BID ( Reported) Fluticasone/Salmeterol (Advair 250-50 Diskus) 60 Puff/Inh Disk 2 PUFF IH DAILY ( Reported) Furosemide (Lasix) 40 Mg Tablet 80 MG PO DAILY Prescribed by: CHARLOTTE BENZ DO Guaifenesin (Mucinex) 600 Mg Tablet.er 600 MG PO BID (Reported) Metoprolol Succinate ER (Metoprolol Succinate ER) 25 Mg Tab.er.24h 37.5 MG PO BID (Reported) Montelukast (Singulair) 10 Mg Tablet 10 MG PO DAILY (Reported) Multivitamin (Multivitamins) 1 Each Capsule 1 EACH PO DAILY (Reported) Omeprazole (Omeprazole) 20 Mg Capsule.dr 20 MG PO BID (Reported) Prednisone (PredniSONE) 20 Mg Tablet 40 MG PO DAILY Prescribed by: CHARLOTTE BENZ DO Tiotropium [place] (Spiriva) 18 Mcg Cap.w.dev 18 MCG IH DAILY (Reported) As needed Albuterol HFA (Proair HFA) 8.5 Gm Hfa.aer.ad 2 PUFFS INHALATION Q4H PRN PRN For Shortness of Breath (Reported) Albuterol Neb Soln (Albuterol Neb Soln) 2.5 Mg/3 Ml Vial.neb 2.5 MG INHALATION Q4H PRN PRN For Wheezing (Reported) Additional med instructions In addition to your medications previously prescribed please take the following medications at home: Azithromycin 500 mg daily for 5 days Prednisone 40 mg daily for 5 days Furosemide 80 mg daily (as opposed to 40 mg twice per day) Followup Plan Disposition: Home with close follow-up Follow-up plan We would also like you to follow-up with your primary care doctor, your cultural anthropology professor, and the CHF clinic. The CHF clinic should be able to make an appointment with you within the next 48 hours. Please keep this appointment. Discharge Diet: Heart Healthy Discharge Activity: No restrictions Patient Instructions You came in with shortness of breath which appears to be related to your congestive heart failure and may also be related to a mild COPD exacerbation. Please take the medications as described above. We would like you to remain on 1 L of oxygen at home for the next 7 days. After this point use as needed. Follow-up Provider: Fahad Clarke MD Follow-up with PCP in: 4 weeks Provider: Lenore Pruitt MD Follow-up in: 1 week CHF Clinic: 1 week Time spent Greater than 35 minutes spent on discharge documentation and coordination Attending Statement The patient was seen and examined together with Dr. Benz on 05/23/17 and I have added additional information to the note above. copies to: Lenore Pruitt MD; Fahad Clarke MD, Adam J DO May 23, 2017 14:18 Joy Rodgers DO May 23, 2017 16:54
--- NOTE | 2017-05-23 16:36 | NUR ---
Social Work-discharge: Data:EMR Reviewed. Pt is on day 2 of hospitalization for copd per H&P. Pt is medically stable for discharge. Pt has been up independent in his room and resides with his family. No discharge needs identified. All updated and agreeable to plan. Assessment:Pt who is independent at baseline. Plan:Pt to discharge home today via POV. No discharge needs identified. All updated and agreeable to plan. JULISA Zuniga
--- NOTE | 2017-05-23 18:06 | NUR ---
Discharge Pt discharged at 1730. He was given discharge instructions and instructions for follow up care. He received hard copies of prescriptions to take with him. He denied any questions. He left with all of his belongings. IV's were d/c'd intact. His daughter picked him up and brought him to the car by wheelchair where she would be driving him home.
== END 2017-05-23 16:00 | disposition home or self-care (01) | DRG 871 ==
LOC: SED 11:53 → MPC 14:40 → PCC 18:58
PROVIDERS: ADMIT Specialist; ATTEND Neuromusculoskeletal Medicine & OMM
PROC: 4A033R1 Measurement of Arterial Saturation, Peripheral, Percutaneous Approach (ICD-10-PCS; principal; 2017-05-21)
PROC: 5A09357 Assistance with Respiratory Ventilation, Less than 24 Consecutive Hours, Continuous Positive Airway Pressure (ICD-10-PCS; 2017-05-21)
DX: A41.9 Sepsis, unspecified organism (principal); J96.01 Acute respiratory failure with hypoxia; I50.23 Acute on chronic systolic (congestive) heart failure; J44.1 Chronic obstructive pulmonary disease with (acute) exacerbation; L03.116 Cellulitis of left lower limb; L03.115 Cellulitis of right lower limb; I12.9 Hypertensive chronic kidney disease with stage 1 through stage 4 chronic kidney disease, or unspecified chronic kidney disease; N18.3 Chronic kidney disease, stage 3 (moderate); I48.2 Chronic atrial fibrillation; I25.5 Ischemic cardiomyopathy; K21.9 Gastro-esophageal reflux disease without esophagitis; N40.0 Benign prostatic hyperplasia without lower urinary tract symptoms; I25.10 Atherosclerotic heart disease of native coronary artery without angina pectoris; Z79.51 Long term (current) use of inhaled steroids; Z87.891 Personal history of nicotine dependence; Z95.0 Presence of cardiac pacemaker